=== PATIENT | female | born 1970 | race Caucasian/White ===

== ENCOUNTER 2018-01-16 10:16 | Inpatient (IN) ==
--- NOTE | 2018-01-15 22:16 | Discharge Summary ---
<Opal Burgos E - Last Filed: 01/15/18 22:13> Date of Encounter: 01/15/18 - Discharge Diagnosis (1) Status post total right knee replacement Priority: Primary Status: Acute (2) Arthritis of right knee Priority: Primary Status: Chronic (3) History of DVT (deep vein thrombosis) Priority: Secondary Status: Chronic (4) Obesity Priority: Secondary Status: Chronic Qualifiers: Obesity type: unspecified obesity type Obesity classification: unspecified obesity classification Serious obesity comorbidity presence: unspecified whether serious comorbidity present Qualified Code(s): E66.9 - Obesity, unspecified - Hospital Course Hospital course: Ms. Shelley is a 47 year old female - Time Spent with Patient Total time spent providing and/or coordinating discharge services: - Discharge Medications Prescriptions: Doxycycline Hyclate 100 mg PO BID 10 Days #20 tablet Home Medications: Aspirin Enteric Coated [Aspirin EC] 325 mg PO BID 10 Days #20 tablet. [Rx] Oxycodone HCl 5 mg PO Q6H PRN 7 Days #28 tablet 01/15/18 [Rx] Cyclobenzaprine [Flexeril] 20 mg PO HS 01/16/18 [History] Duloxetine HCl [Cymbalta] 120 mg PO DAILY 01/16/18 [History] Levocetirizine 5 mg PO DAILY 01/16/18 [History] Montelukast [Singulair] 10 mg PO HS 01/16/18 [History] Pregabalin [Lyrica] 225 mg PO HS 01/16/18 [History] Rizatriptan Benzoate [Maxalt] 5 mg PO Q2H PRN 01/16/18 [History] Topiramate 150 mg PO BID 01/16/18 [History] Triamcinolone Acetonide [Nasacort] 1 spr NS DAILY 01/16/18 [History] Doxycycline Hyclate 100 mg PO BID 10 Days #20 tablet 01/17/18 [Rx] Allergies/Adverse Reactions: 3 Allergy/AdvReac Type Severity Reaction Status Date / Time clindamycin Allergy Hives Verified 01/16/18 10:59 codeine Allergy Itching Verified 01/16/18 10:59 Erythromycin Base Allergy Hives Verified 01/16/18 10:59 penicillin G Allergy See Verified 01/16/18 10:59 Comments tetanus toxoid, adsorbed Allergy See Verified 01/16/18 10:59 Comments vancomycin Allergy Rash Verified 01/16/18 10:59 cough syrup Allergy Itching Uncoded 01/16/18 10:59 tape Allergy Blister Uncoded 01/16/18 10:59 Primary care physician: PCP NONE - Patient Status Disposition: Home, Self-Care Condition: Good - Discharge Instructions Follow Up With: NONE,PCP [Non-Partnered Physician] - Nikki Maldonado [Family Provider] - <Wolfgang Willson - Last Filed: 01/18/18 06:56> Date of Encounter: 01/18/18 Time of Encounter: 06:55 - Discharge Diagnosis (1) Obesity (BMI 30.0-34.9) Priority: Secondary Status: Chronic (2) Status post total right knee replacement Priority: Primary Status: Acute (3) Arthritis of right knee Priority: Primary Status: Chronic (4) History of DVT (deep vein thrombosis) Priority: Secondary Status: Chronic (5) Acute blood loss anemia Priority: Primary Status: Acute (6) 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 Shelley is a 47 year old female Status post right total knee replacement The patient had an uneventful postoperative course. They received antibiotics and physical therapy and were discharged in stable condition. There will follow -up in the office in 2 weeks. - Time Spent with Patient Total time spent providing and/or coordinating discharge services: Primary care physician: PCP NONE - Patient Status Functional capacity at discharge: uses cane/walker Overall status at discharge: patient is progressing back to baseline
--- NOTE | 2018-01-16 11:01 | History & Physical Report ---
Date of Encounter: 01/16/18 Time of Encounter: 11:00 24 Hour HP Update - Instructions Instructions: If the History and Physical is less than 30 days old and was completed prior to A.M. admission and or procedure and has NOT been updated on calendar day of procedure please complete this update prior to performing procedure. - Update Patient reports changes in Medical Condition: No Changes in examination, assessment, or condition: No Changes in Medication: No Preop tests/diagnostics Reviewed: Yes Surgery Remains Indicated: Yes Consent for Planned Operative Procedure(s) Verified: Yes - Pre-Operative Checklist Preoperative Checklist Indicated: No Prophylactic Antibiotic Ordered: Yes Is VTE Prophylaxis Indicated?: Yes
[2018-01-16] MEDS ORDERED: Ringers Solution, Lactated 1,000 ML IVC SCH (11:30)
[2018-01-16] MEDS ORDERED: Lidocaine -MPF 2% 2 ML VIAL ONE (11:34)
[2018-01-16] MEDS ORDERED: Propofol 500 MG/50 ML INFUS..BTL ONE (11:34)
[2018-01-16] MEDS ORDERED: Ondansetron 4 MG/2 ML VIAL ONE (11:34)
[2018-01-16] MEDS ORDERED: *HR* FentaNYL (PF) 100 MCG/2 ML VIAL ONE (11:34)
[2018-01-16] MEDS ORDERED: *HR* Midazolam HCl 2 MG/2 ML VIAL ONE (11:34)
[2018-01-16] MEDS ORDERED: Acetaminophen IV 1,000 MG/100 ML INFUS..BTL IVPB ONE (11:36)
--- NOTE | 2018-01-16 11:36 | Anesthesia Evaluation PreOp ---
Date of Encounter: 01/16/18 Time of Encounter: 11:35 - Past History Planned Operation: Right robotic TKR Cardiac History: Denies any Significant Hx Pulmonary History: Denies Any Significant HX CABLE ARMORER History: Other (R foot reflex sympathetic dystrophy, chronic low baCK Pmigraine) Other Medical History: Other (hx of DVT) Anesthesia History: Past Anesthesia (hysterectomy, D&C, tonsills, breast reduction, R knee scope, wideom teeth, SCS and removal), Problems (PONV) Alcohol Use: none Drug use: none Medications and Allergies Aspirin Enteric Coated [Aspirin EC] 325 mg PO BID 10 Days #20 tablet. [Rx] Oxycodone HCl 5 mg PO Q6H PRN 7 Days #28 tablet 01/15/18 [Rx] 3 Allergy/AdvReac Type Severity Reaction Status Date / Time clindamycin Allergy Hives Verified 01/16/18 10:59 codeine Allergy Itching Verified 01/16/18 10:59 Erythromycin Base Allergy Hives Verified 01/16/18 10:59 penicillin G Allergy See Verified 01/16/18 10:59 Comments tetanus toxoid, adsorbed Allergy See Verified 01/16/18 10:59 Comments vancomycin Allergy Rash Verified 01/16/18 10:59 cough syrup Allergy Itching Uncoded 01/16/18 10:59 tape Allergy Blister Uncoded 01/16/18 10:59 - Meds/Allergy Pre-op Review Medications Reviewed: Yes Allergies Reviewed: Yes Beta Blockers on Current Med List: No Anesthesia Results - Labs Laboratory Tests 01/10/18 01/10/18 01/10/18 10:32 11:00 11:00 WBC 5.3 Hgb 15.0 Hct 44.4 Plt Count 337 PT 10.2 INR 1.0 APTT 28.6 Sodium 136 Potassium 4.7 Chloride 104 Carbon Dioxide 26 BUN 9 Creatinine 0.78 Anesthesia Exam O2 Sat Height 1.57 m Height 1.57 m Height 1.57 m Weight 83.915 kg Weight 83.915 kg Weight 83.915 kg O2 Sat by Pulse Oximetry 100 Vital Signs Temp Pulse Resp BP Pulse Ox 98.5 F 72 18 132/95 100 01/16/18 10:34 01/16/18 10:34 01/16/18 10:34 01/16/18 10:34 01/16/18 10:34 - HEENT Pupil (Motor): Pupils equal, EOMI Mallampati: II Teeth: Normal Oral Opening: Greater than 3 - CABLE ARMORER LOC: Oriented CABLE ARMORER Motor: Normal RUE, Normal LUE, Normal RLE, Normal LLE, Normal Face CABLE ARMORER Sensory: Normal: RUE, LUE, RLE, LLE, Face - Cardiac Rhythm: Regular Anesthesia Assess/Plan ASA Score: 2 Modified Rachana Scale for Level of Consciousness: Cooperative, oriented, and tranquil Anesthetic Plan: General, Regional (R femoral and Ipak) Monitoring Plan: Standard Monitors Recovery Plan: PACU
[2018-01-16] MEDS ORDERED: Scopolamine Patch 1.5 MG PATCH.TD72 TD ONE (11:50)
[2018-01-16] MEDS ORDERED: CeFAZolin Syringe 2,000MG/20 ML SYR IVPB ONE (11:59)
[2018-01-16] MEDS ORDERED: ROPIVACAINE HCL/PF 0.5% 30 ML VIAL ONE (12:15)
[2018-01-16] MEDS ORDERED: CeFAZolin Syr 2,000MG/20 ML 2,000 MG/20 ML SYRINGE IVPB ONE (12:15)
[2018-01-16] MEDS ORDERED: Bupivacaine/Clonidine Syringe 1 EACH SYRINGE ONE (12:16)
--- NOTE | 2018-01-16 13:02 | Anesthesia Procedures ---
Date of Encounter: 01/16/18 Time of Encounter: 13:00 Procedures: Anesthesia - Nerve Block Procedure Date: 01/16/18 Time: 13:00 Allergies/Adv Reactions: clindamycin Allergy (Verified 01/16/18 10:59) Hives codeine Allergy (Verified 01/16/18 10:59) Itching Erythromycin Base Allergy (Verified 01/16/18 10:59) Hives penicillin G Allergy (Verified 01/16/18 10:59) See Comments tetanus toxoid, adsorbed Allergy (Verified 01/16/18 10:59) See Comments vancomycin Allergy (Verified 01/16/18 10:59) Rash cough syrup Allergy (Uncoded 01/16/18 10:59) Itching tape Allergy (Uncoded 01/16/18 10:59) Blister Pre-op Diagnosis: oa right knee Surgical Procedure: right tka Checklist: Correct Patient Identifier, Correct procedure, History checked Correct side: Right Blood Thinner: No Monitor Applied: EKG, BP, Pulse Oximetry Supplemental Oxygen via Nasal Cannula (L/min): 2 Sedation: Versed (mg): 2 Sedation: Fentanyl (mcg): 100 Indication: Post Op Analgesia Pre-op Neuro Deficits: No Block Type: Femoral, Other (iPACK) Catheter placed: No Sterile Technique: Yes Ultrasound used: Yes Anatomy identified: Yes Visual spread of Local: Yes Neuro Stimulation: No Blood on Needle Aspiration: No Smooth Injection of Local: Yes Pain with Injection of Local: No Prep: Chlorhexadine Needle: 22 x 50 mm Stimuplex (femoral), 21 x 100 mm Stimuplex (ipack) Local: 0.25% Bupivicaine w/Clonidine 20 mcg/cc (20cc for iPACK), Ropivacaine ( 0.5% 30cc for femoral) Volume (cc): 50 Number of Attempts: 1 Complications: None/effective block
[2018-01-16] MEDS ORDERED: *HR* HYDROmorphone (PF) 1 MG/ML SYRINGE IVP PRN (13:46)
[2018-01-16] MEDS ORDERED: *HR* OxyCODONE Immed Rel 5 MG TABLET PO PRN (13:46)
[2018-01-16] MEDS ORDERED: *HR* Promethazine 25 MG/ML VIAL IVP PRN (13:46)
--- NOTE | 2018-01-16 14:15 | Orthopedic Operative Note ---
Date of procedure: 01/16/18 Pre-op diagnosis: Right knee arthritis Post-op diagnosis: same Procedure: Procedure: Right robotic-assisted Total knee replacement Estimated blood loss: 400 cc Hardware: Metal and polyethylene replacement. [place] Femur: 3 Tibia: 3 TS insert: 13 Patella: 36 Exam Under anesthesia: 6 degree hyperextension 3 degree varus as calculated by the robot full flexion and no instability Procedural Notes: Grade 3 arthritic changes all 3 compartments. Operative procedure: The patient was brought to the operating room and placed on the operating room table. After general anesthesia was administered the operative knee was examined. Findings were noted in the exam under anesthesia. The operative extremity was prepped and draped in sterile surgical fashion. The patient received IV antibiotics prior to skin incision. A standard midline incision was made centered over the patella. The incision was made through the skin and subcutaneous tissue. A medial parapatellar tendon approach was performed. Care was taken to preserve tissue along the medial aspect of the patella. And to protect the patella tendon. The deep MCL was released off the medial tibia. The infra patella fat pad was excised. The patella was everted and cut was made at the level of the insertion of the quadriceps and patella tendon. The patella was sized the guide was seated and the lug holes are drilled. Knee was brought into flexion. Patient noted to have grade 3 arthritic changes all 3 compartments. Steinmann pins were placed in the tibia and the femur for the tibial and femoral arrays respectively. Checkpoints were also placed in the tibia and the femur for calculation purposes. The knee including the femur and the tibial registered. Osteophytes, ACL and PCL were excised at this point. Extension and flexion were assessed with a valgus stress components were adjusted on the computer to balance the knee. Femoral cuts were made first with robotic assistance, these included the anterior cut posterior cuts chamfer cuts. Tibial cut was then performed with robotic assistance as well. Bone fragments were removed, as well as the medial and lateral meniscus. The size 3 femoral guide was seated box cut was made lug holes are drilled. The size 3 tibial tray was seated and prepared with the fin cutter. Trial reduction with the 13 TS Erin revealed extension of 0 degree and 2 degree varus full flexion. No varus valgus instability. Trial reduction revealed excellent patella tracking. All trial components were removed all bony surfaces were irrigated. The Tibia was seated followed by the femur, The Erin size 13 was seated and secured patella. Patient had similar findings for motion and stability. The knee was closed by the PA. The knee was then irrigated out with 2 L of pulse irrigation. The extensor mechanism was closed with #2 FiberWire suture and #2 PDS suture. The subcutaneous tissue was then irrigated and closed deep with #1 PDS suture superficially with 0 PDS suture and skin was closed with zip tie The patient was then placed in a sterile dressing and a postoperative brace extubated and transferred to recovery room in stable condition. Anesthesia: GETA Surgeon: Wolfgang Willson Was there an pastoral assistant present: Yes Maternity Nurse: Jade Law Estimated blood loss (cc): 400 Condition: stable Disposition: PACU
[2018-01-16 15:30] LABS: Hematocrit 33.9 % (35.3-44.9)
[2018-01-16 15:31] LABS: Hemoglobin 11.3 g/dL (11.5-15.4)
--- NOTE | 2018-01-16 15:32 | Anesthesia Evaluation Post Op ---
Date of Encounter: 01/16/18 Time of Encounter: 15:30 - Vital Signs Vital Signs: Vital Signs/O2 Sat/Glucose, Most Current Temp Pulse Resp BP Pulse Ox 01/16/18 15:27 97.5 F L 73 12 100/65 96 01/16/18 15:17 97.5 F L 70 12 96/66 97 01/16/18 15:07 69 12 91/64 94 01/16/18 14:57 69 12 79/48 94 01/16/18 14:47 97.9 F 72 14 90/63 98 01/16/18 13:00 74 16 128/94 99 01/16/18 12:38 71 18 134/106 98 - Lungs Lungs: Clear Ascult./Percussion - Airway Airway: Non-obstructed - Cardiovascular Regular Rate - Mental Status Mental Status: Alert & Oriented, Answers Appropriately - Pain Pain Scale: 2 - Nausea Vomiting Nausea Vomiting: Not Present - Hydration Hydration: Ice chips - Discharge PostOp Status: Transfer Patient to floor
[2018-01-16] MEDS ORDERED: Naloxone 0.4 MG/ML INJ IVP PRN (15:48)
[2018-01-16] MEDS ORDERED: Sennosides 8.6 MG TABLET PO PRN (15:48)
[2018-01-16] MEDS ORDERED: Temazepam 15 MG CAPSULE PO PRN (15:48)
[2018-01-16] MEDS ORDERED: Ondansetron 4 MG/2 ML VIAL IVP PRN (15:48)
[2018-01-16] MEDS ORDERED: MOM Conc 10 ML UD.LIQ PO PRN (15:48)
[2018-01-16] MEDS ORDERED: (Rizatriptan Benzoate [Maxalt] 5 MG) PO PRN (15:48)
[2018-01-16] MEDS ORDERED: CeFAZolin Pre 2,000 MG/100 ML 2,000 MG/100 ML BAG IVPB SCH (16:00)
[2018-01-16] MEDS: Ringers Solution, Lactated 1,000 ML IVC SCH (17:55)
[2018-01-16] MEDS: *HR* Enoxaparin 30 MG/0.3 ML SYRINGE SQ SCH (17:56)
[2018-01-16] MEDS ORDERED: *HR* Enoxaparin 30 MG/0.3 ML SYRINGE SQ SCH (18:00)
[2018-01-16] MEDS: Acetaminophen IV 1,000 MG/100 ML INFUS..BTL IVPB PRN (20:19)
[2018-01-16] MEDS: Pregabalin 75 MG CAPSULE PO SCH (21:44)
[2018-01-16] MEDS: Topiramate 100 MG TABLET PO SCH (21:45)
[2018-01-16] MEDS: CeFAZolin Pre 2,000 MG/100 ML 2,000 MG/100 ML BAG IVPB SCH (21:55)
[2018-01-17] MEDS: traMADol 50 MG TABLET PO PRN ×2 (00:49→09:49)
[2018-01-17] MEDS: CeFAZolin Pre 2,000 MG/100 ML 2,000 MG/100 ML BAG IVPB SCH (00:50)
[2018-01-17 02:14] LABS: Hematocrit 29.5 % (35.3-44.9); Hemoglobin 9.9 g/dL (11.5-15.4)
[2018-01-17 02:32] LABS: BUN/Creatinine Ratio 12 (6-26); Blood Urea Nitrogen 9 mg/dL (6-20); Calcium 8.5 mg/dL (8.6-10.3); Carbon Dioxide 22 mEq/L (23-29); Chloride 111 mEq/L (98-107); Glucose 116 mg/dL (70-105); Osmolality,Calculated 288 (280-300); Potassium 3.9 mEq/L (3.5-5.1); Sodium 139 mEq/L (136-145); eGFR For African Americans > 60 (> 60); eGFR For Non-African Americans > 60 (> 60)
[2018-01-17] MEDS: Acetaminophen IV 1,000 MG/100 ML INFUS..BTL IVPB PRN (04:34)
[2018-01-17] MEDS: Ringers Solution, Lactated 1,000 ML IVC SCH (05:22)
[2018-01-17] MEDS: *HR* Enoxaparin 30 MG/0.3 ML SYRINGE SQ SCH ×2 (05:22→18:12)
--- NOTE | 2018-01-17 06:52 | Orthopedics Progress Note ---
Date of Encounter: 01/17/18 Time of Encounter: 06:51 - Assessment and Plan (1) Obesity (BMI 30.0-34.9) Current Visit: Yes Status: Chronic (2) Status post total right knee replacement Current Visit: No Status: Acute (3) Arthritis of right knee Current Visit: No Status: Chronic (4) History of DVT (deep vein thrombosis) Current Visit: No Status: Chronic Subjective Interval history: Patient was seen this morning doing well without complaints. Afebrile vital signs stable. Operative extremity: Nerve block still working Dressing clean dry and intact Calves nontender Assessment and plan: Continue with postoperative care hemoglobin 9.9 Objective Vital signs: Vital Signs Temp Pulse Resp BP Pulse Ox 01/17/18 02:54 98.2 F 80 14 92/62 96 01/16/18 23:01 98.5 F 81 18 96/62 96 01/16/18 19:15 98.7 F 98 18 102/71 98 01/16/18 17:58 98.0 F 95 17 94/66 100 01/16/18 16:58 98.0 F 76 16 100/62 95 01/16/18 16:27 97.9 F 83 15 100/68 96 01/16/18 15:50 97.5 F L 77 15 101/70 98 01/16/18 15:37 97.5 F L 76 12 95/71 97 01/16/18 15:27 97.5 F L 73 12 100/65 96 01/16/18 15:17 97.5 F L 70 12 96/66 97 01/16/18 15:07 69 12 91/64 94 01/16/18 14:57 69 12 79/48 94 01/16/18 14:47 97.9 F 72 14 90/63 98 01/16/18 13:00 74 16 128/94 99 01/16/18 12:38 71 18 134/106 98 01/16/18 10:34 98.5 F 72 18 132/95 100 Intake and Output 01/16/18 01/16/18 01/17/18 15:59 23:59 07:59 Intake Total 120 / 120 500 / 500 1300 / 1300 Output Total 400 / 400 0 / 0 Balance -280 / -280 500 / 500 1300 / 1300 Intake: IV Fluids 120 / 120 200 / 200 1000 / 1000 Lactated Ringers 1,000 ML @ 75 1000 / 1000 mls/hr IVC .[id number] RAISSA Rx#: [id number] Ofirmev 1,000 mg/100 ml 1,000 100 / 100 100 / 100 mg In 100 ml @ 400 mls/hr IVPB Q8HR PRN Rx#:[id number] Ancef Premix 2,000 MG/100 ML 2, 100 / 100 000 mg In 100 ml @ 200 mls/hr IVPB Q8HR RAISSA Rx#:[id number] Ancef Syringe 2,000 MG/20 ML 2, 20 / 20 000 mg In 20 ml @ 200 mls/hr IVPB PREOP ONE Rx#:[id number] Oral 300 / 300 300 / 300 Output: Urine 0 / 0 Estimated Blood Loss 400 / 400 Other: # Voids 1 1 Weight 83.915 kg - Labs CBC & BMP: 01/17/18 01:53 01/17/18 01:53 Labs: Abnormal lab results Hgb 9.9 g/dL (11.5-15.4) L 01/17/18 01:53 Hct 29.5 % (35.3-44.9) L 01/17/18 01:53 Chloride 111 mEq/L (98-107) H 01/17/18 01:53 Carbon Dioxide 22 mEq/L (23-29) L 01/17/18 01:53 Glucose 116 mg/dL (70-105) H 01/17/18 01:53 Calcium 8.5 mg/dL (8.6-10.3) L 01/17/18 01:53 - VTE Documentation of Mechanical Device: Venous foot pump, device Consult Discharge Plan - Plan Referrals: NONE,PCP [Non-Partnered Physician] - Nikki Maldonado [Family Provider] -
--- NOTE | 2018-01-17 08:35 | Event Note ---
Date of Encounter: 01/17/18 Time of Encounter: 08:50 PCR- POD#1 right total knee robotic 01/16/18 Dr. Willson PCR - Patient seen at bedside. Labwork and medications reviewed. Pain control: Adequate Participating in PT. All questions and concerns addressed. Educated on use of incentive spirometer, ambulation, and hydration. Patient educated on post-operative restrictions and care. Addressed: Patient to be discharged on antibiotic. D/C plan: Home with outpatient therapy when appropriate
[2018-01-17] MEDS: Topiramate 100 MG TABLET PO SCH ×2 (09:47→20:41)
[2018-01-17] MEDS: Fluticasone Propionate Nasal 50 MCG/SPRAY BOTTLE NS SCH (09:50)
[2018-01-17] MEDS: *HR* OxyCODONE/APAP 5/325 TABLET PO PRN ×2 (11:26→20:48)
[2018-01-17] MEDS: Pregabalin 75 MG CAPSULE PO SCH (20:40)
[2018-01-18] MEDS: *HR* OxyCODONE Immed Rel 5 MG TABLET PO PRN ×3 (01:39→09:59)
[2018-01-18 02:09] LABS: Hemoglobin 8.5 g/dL (11.5-15.4)
[2018-01-18 02:32] LABS: BUN/Creatinine Ratio 12 (6-26); Blood Urea Nitrogen 10 mg/dL (6-20); Calcium 8.2 mg/dL (8.6-10.3); Carbon Dioxide 22 mEq/L (23-29); Chloride 112 mEq/L (98-107); Glucose 155 mg/dL (70-105); Osmolality,Calculated 296 (280-300); Potassium 3.3 mEq/L (3.5-5.1); Sodium 142 mEq/L (136-145); eGFR For African Americans > 60 (> 60); eGFR For Non-African Americans > 60 (> 60)
[2018-01-18] MEDS: *HR* Enoxaparin 30 MG/0.3 ML SYRINGE SQ SCH (06:50)
--- NOTE | 2018-01-18 06:57 | Orthopedics Progress Note ---
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 Afebrile vital signs stable. Operative extremity: Nerve block still working Dressing clean dry and intact Calves nontender Assessment and plan: Continue with postoperative care hemoglobin 8.5 asymptomatic discharged today Objective Vital signs: Vital Signs Temp Pulse Resp BP Pulse Ox 01/17/18 22:30 98.4 F 98 18 115/78 98 01/17/18 19:18 98.9 F 95 18 109/74 96 01/17/18 16:03 98.6 F 96 16 107/75 99 01/17/18 11:28 98.5 F 85 16 104/79 99 01/17/18 07:23 98.8 F 68 14 108/76 99 Intake and Output 01/17/18 01/17/18 01/18/18 15:59 23:59 07:59 Intake Total 240 / 240 50 / 50 400 / 400 Output Total 0 / 0 Balance 240 / 240 50 / 50 400 / 400 Intake: Oral 240 / 240 50 / 50 400 / 400 Output: Urine 0 / 0 Other: Meal Lunch Percent of Meal Consumed 100% # Voids 1 1 - Labs CBC & BMP: 01/18/18 01:29 01/18/18 01:29 Labs: Abnormal lab results Hgb 8.5 g/dL (11.5-15.4) L 01/18/18 01:29 Hct 25.0 % (35.3-44.9) L 01/18/18 01:29 Potassium 3.3 mEq/L (3.5-5.1) L 01/18/18 01:29 Chloride 112 mEq/L (98-107) H 01/18/18 01:29 Carbon Dioxide 22 mEq/L (23-29) L 01/18/18 01:29 Glucose 155 mg/dL (70-105) H 01/18/18 01:29 Calcium 8.2 mg/dL (8.6-10.3) L 01/18/18 01:29 - VTE Documentation of Mechanical Device: Venous foot pump, device Consult Discharge Plan - Plan Referrals: NONE,PCP [Non-Partnered Physician] - Nikki Maldonado [Family Provider] - Prescriptions: Doxycycline Hyclate 100 mg PO BID 10 Days #20 tablet
[2018-01-18 07:09] VITALS: BP 118/79
[2018-01-18] MEDS: Topiramate 100 MG TABLET PO SCH (09:46)
[2018-01-18] MEDS: Fluticasone Propionate Nasal 50 MCG/SPRAY BOTTLE NS SCH (09:48)
[2018-01-18] MEDS: *HR* OxyCODONE/APAP 5/325 TABLET PO PRN (12:33)
--- NOTE | 2018-01-18 12:34 | Physician Discharge Referral ---
Home Health/Hosp Referral Info Transfer to: Home Health Attending Provider: Dr. Wolfgang Willson Provider in Charge Post Discharge: PCP - Diagnosis (1) Status post total right knee replacement Priority: Primary Status: Acute (2) Arthritis of right knee Priority: Primary Status: Chronic (3) History of DVT (deep vein thrombosis) Priority: Secondary Status: Chronic (4) Obesity Priority: Secondary Status: Chronic - Respiratory Orders Smoking Cessation: Smoking cessation has been advised. For more information, call the [place] Tobacco Quit Line at 4-746-VGUP-NOW. - Dressing/Wound Care Site: Right knee Type of Dressing/Treatments w/Frequency: Opsite placed. Keep dressing intact until first follow up appointment. If greater than 50% saturated, notify office, remove dressing and place appropriate dressing back in place. Leave Zipline intact. Opsite dressing is water resistant, not water-proof. OK to shower, but do not get dressing wet. - Diet/Nutrition Diet/Nutrition Orders: Regular - Activity Activity Orders: Up ad viviana, Ambulate, Chair, Walker Activity: List: Total Knee replacement Precautions x 6 weeks Apply cold therapy wrap 3-6x/day for 20 minutes at a time. Encourage ambulation throughout the day and incentive spirometer 10x/hour. Elevate affected extremity above heart as tolerated. Brace: Wear knee immobilizer at night x 2 weeks. - Services Needed Following services are medically necessary services: Nursing, Home Health Aide, Physical Therapy, Occupational Therapy - Transfer Medications Prescriptions: Doxycycline Hyclate 100 mg PO BID 10 Days #20 tablet Home Medications: Aspirin Enteric Coated [Aspirin EC] 325 mg PO BID 10 Days #20 tablet. [Rx] Oxycodone HCl 5 mg PO Q6H PRN 7 Days #28 tablet 01/15/18 [Rx] Cyclobenzaprine [Flexeril] 20 mg PO HS 01/16/18 [History] Duloxetine HCl [Cymbalta] 120 mg PO DAILY 01/16/18 [History] Levocetirizine 5 mg PO DAILY 01/16/18 [History] Montelukast [Singulair] 10 mg PO HS 01/16/18 [History] Pregabalin [Lyrica] 225 mg PO HS 01/16/18 [History] Rizatriptan Benzoate [Maxalt] 5 mg PO Q2H PRN 01/16/18 [History] Topiramate 150 mg PO BID 01/16/18 [History] Triamcinolone Acetonide [Nasacort] 1 spr NS DAILY 01/16/18 [History] Doxycycline Hyclate 100 mg PO BID 10 Days #20 tablet 01/17/18 [Rx] Allergies/Adverse Reactions: 3 Allergy/AdvReac Type Severity Reaction Status Date / Time clindamycin Allergy Hives Verified 01/16/18 10:59 codeine Allergy Itching Verified 01/16/18 10:59 Erythromycin Base Allergy Hives Verified 01/16/18 10:59 penicillin G Allergy See Verified 01/16/18 10:59 Comments tetanus toxoid, adsorbed Allergy See Verified 01/16/18 10:59 Comments vancomycin Allergy Rash Verified 01/16/18 10:59 cough syrup Allergy Itching Uncoded 01/16/18 10:59 tape Allergy Blister Uncoded 01/16/18 10:59 Certification: Further, I certify that my clinical findings support that this patient is homebound (i.e. absences from home require considerable and taxing effort and are for medical reasons or rastafari services or infrequently or short duration when for other reasons) because: Homebound Reason: Post-surgery restriction and or conditions limit ability to leave home Attestation: My signature below is to certify that this patient is under my care and that I, or nurse practitioner, or a physician temporary office assistant working with me, has a face-to- face encounter with this patient.
--- NOTE | 2018-01-18 18:56 | Event Note ---
Date of Encounter: 01/18/18 Time of Encounter: 09:10 PCR- POD#2 right total knee robotic 01/16/18 Dr. Willson PCR - Patient seen at bedside. Labwork and medications reviewed. Pain control: Adequate Participating in PT. All questions and concerns addressed. Educated on use of incentive spirometer, ambulation, and hydration. Patient educated on post-operative restrictions and care. Addressed: Patient to be discharged on antibiotic. Patient complaining of significant calf pain today. With her history of bilateral upper extremity DVTs Will obtain Doppler of the right lower extremity prior to patient's discharge. D/C plan: Home with home health today pending Doppler
== END 2018-01-18 14:10 | disposition home or self-care (01) | DRG 470 ==
LOC: SAMDAY 10:16 → 3NENU 15:44
PROVIDERS: ADMIT Orthopaedic Surgery; ATTEND Orthopaedic Surgery

== ENCOUNTER 2019-03-26 01:59 | Inpatient (IN) ==
[2019-03-26 06:55] LABS: Basophils # 0.1 K/mcL (0.0-0.2); Basophils % 0.7 %; Eosinophils # 0.1 K/mcL (0.0-0.6); Eosinophils % 1.5 %; Hematocrit 39.4 % (35.3-44.9); Hemoglobin 13.1 g/dL (11.5-15.4); Immature Granulocytes % 0.4 % (0-4); Lymphocytes % 24.8 %; Mean Corpuscular HGB Conc 33.2 g/dL (31.6-35.5); Mean Corpuscular Volume 96.3 fL (83.0-100.0); Monocytes # 0.6 K/mcL (0.0-1.3); Monocytes % 7.1 %; Neutrophils # 5.3 K/mcL (1.6-8.9); Platelet Count 294 K/mcL (140-400); Red Blood Count 4.09 M/mcL (3.82-4.97); Segmented Neutrophils % 65.5 %; White Blood Count 8.1 K/mcL (4.3-11.1)
[2019-03-26 07:16] LABS: Alanine Aminotransferase 19 Units/L (7-52); Albumin 4.3 g/dL (3.5-5.7); Alkaline Phosphatase 103 Units/L (34-104); Aspartate Amino Transferase 16 Units/L (13-39); BUN/Creatinine Ratio 20 (6-26); Bilirubin,Total 0.4 mg/dL (0.3-1.0); Blood Urea Nitrogen 15 mg/dL (6-20); Calcium 8.5 mg/dL (8.6-10.3); Carbon Dioxide 21 mEq/L (23-29); Chloride 106 mEq/L (98-107); Globulin 2.1 g/dL (2.4-3.5); Glucose 118 mg/dL (70-105); Osmolality,Calculated 290 (280-300); Potassium 3.9 mEq/L (3.5-5.1); Sodium 139 mEq/L (136-145); Total Protein 6.4 g/dL (6.4-8.9); eGFR For African Americans > 60 (> 60); eGFR For Non-African Americans > 60 (> 60)
[2019-03-26] MEDS ORDERED: Ketorolac 30 MG/ML VIAL IVP PRN (07:38)
--- NOTE | 2019-03-26 07:52 | Internal Med History&Physical ---
Date of Encounter: 03/26/19 Time of Encounter: 07:46 Internal Medicine - H&P: HPI History of present illness: Ms. Shelley is a 48 year old female with history of migraines and complex regional pain syndrome presents as a transfer from [facility] ED for a right lower limb fracture. Patient was hanging curtains when she fell, she was drinking prior to this. She does not have any alcohol abuse history that she reports. Family history reviewed, non-contributory. In [facility] ED an X -ray of right knee showed comminuted and moderately displaced distal right femoral metadiaphyseal fracture. She was given 4 mg of morphine followed by two doses of Dilaudid 1 mg, which did help alleviate pain. Serum alcohol level was Pain is currently rated 8/10 in severity, located just above right knee radiating to her thigh and knee. Currently patient is in moderate pain with right foot with some tingling and mild numbness. She denies fevers/chills, n/v, chest pain, shortness of breath. Past Med Surg Social Fam HX - Past Medical History Medical history: DVT, migraine, other Additional medical history: MRSA. RSD. seasonal allergies Psychiatric history: depression - Past Surgical History Surgical History: hysterectomy, knee replacement, other Additional surgical history: tonsils. breast reduction. spinal cord stimulator placed and removed. wisdom teeth. D&C. left ankle scope. right total knee. Right knee x3. epicondylitis. lateral release. spinal cord stim. spinal cord stim removed. broken nose repair - Social History Smoking Status: Never smoker Smokeless Tobacco Status: No Alcohol use: none Drug use: none Internal Medicine - H&P: Meds Duloxetine HCl [Cymbalta] 90 mg PO DAILY 01/16/18 [History] Montelukast [Singulair] 10 mg PO HS 01/16/18 [History] Triamcinolone Acetonide [Nasacort] 2 spr NS DAILY 01/16/18 [History] Levocetirizine Dihydrochloride [Allergy Relief (Xyzal)] 5 mg PO DAILY 09/07/18 [History] Rizatriptan Benzoate [Maxalt] 10 mg PO DAILY PRN 09/07/18 [History] Cephalexin [Keflex] 500 mg PO Q6H #10 capsule 11/30/18 [Rx] Cyclobenzaprine [Flexeril] 20 mg PO HS 11/30/18 [History] Ibuprofen [Motrin] 800 mg PO Q8HR #30 tablet 11/30/18 [Rx] Topiramate [Topamax] 150 mg PO BID 11/30/18 [History] Allergy/AdvReac Type Severity Reaction Status Date / Time clindamycin Allergy Hives Verified 09/01/18 15:10 codeine Allergy Itching Verified 09/01/18 15:10 Erythromycin Base Allergy Hives Verified 09/01/18 15:10 penicillin G Allergy See Verified 09/01/18 15:10 Comments Sulfa (Sulfonamide Allergy Itching Verified 09/07/18 07:29 Antibiotics) tetanus toxoid, adsorbed Allergy See Verified 09/01/18 15:10 Comments vancomycin Allergy Rash Verified 09/01/18 15:10 cough syrup Allergy Itching Uncoded 01/16/18 10:59 tape Allergy Blister Uncoded 01/16/18 10:59 All Systems PM: A 10-system review of systems was performed and is negative for pertinent findings except as documented above in the HPI. - Constitutional Constitutional: no chills, no fever(s), no night sweats - EENT Eyes: no change in vision, no discharge, no pain, no photophobia Ears: no ear discharge, no ear pain, no tinnitus Nose, mouth and throat: no dysphagia, no nasal discharge, no neck pain, no sore throat - Cardiovascular Cardiovascular ROS IM: no chest pain, no diaphoresis, no dyspnea, no lightheadedness, no palpitations, no syncope - Respiratory Respiratory: no cough, no dyspnea, no wheezing, no excessive phlegm production - Gastrointestinal Gastrointestinal: no abdominal pain, no diarrhea, no hematemesis, no hematochezia, no melena, no nausea, no vomiting - Genitourinary Genitourinary: no change in urinary stream, no dysuria, no flank pain, no elif turia - Musculoskeletal Musculoskeletal ROS IM: joint swelling, limited range of motion, numbness, tingling Additional comments: Right lower extremity - Integumentary Integumentary IM: no rash, no unusual bruising - Neurological Neurological ROS: no confusion, no convulsions, no focal weakness, no numbness, no tingling, no tremor(s) - Hematologic/Lymphatic Hematologic/Lymphatic: no easy bruising - Constitutional Vitals: Temp Pulse Resp BP Pulse Ox 98.3 F 69 17 120/82 94 03/26/19 07:05 03/26/19 07:05 03/26/19 07:05 03/26/19 07:05 03/26/19 07:05 General appearance: Present: A&O X 3, answers questions appropriately Exam: Moderate distress. - Head Head exam: Present: atraumatic, normocephalic - Eye Eye exam: Present: PERRL, conjuntiva pink, sclera anicteric Pupils: Present: PERRL - Neck Neck exam general surgery: Present: supple, trachea midline. Absent: lymphadenopathy - Respiratory Respiratory exam: Present: CTAB. Absent: accessory muscle use, rales, rhonchi, wheezes - Cardiovascular Cardiovascular exam: Present: RRR, +S1, +S2. Absent: diastolic murmur, gallop, rubs, systolic murmur - GI/Abdominal GI/Abdominal exam: Present: normal bowel sounds, soft, no peritoneal signs. Absent: distended, tenderness - Extremities Exam Extremities exam: Present: warm, radial pulses palpable and symmetrical. Absent: calf tenderness, cyanotic, pedal edema Additional comments: Right knee has diffuse swelling mostly above right knee that is tender to mild palpation. DP pulses 2+ via doppler as exam was limited due to pain. Sensation is slightly less right foot compared to left foot. - Neurological Exam Neurological exam: Present: CN II-XII intact, oriented X3, no focal deficits. Absent: pronater drift, facial droop, speech deficit - Skin Skin exam: Present: dry, intact Internal Med - H&P Results - Labs CBC & Chem 7: 03/26/19 06:41 03/26/19 06:41 Labs: Short CBC 03/26/19 Range/Units 06:41 WBC 8.1 (4.3-11.1) K/mcL Hgb 13.1 (11.5-15.4) g/dL Hct 39.4 (35.3-44.9) % Plt Count 294 (140-400) K/mcL Neutrophils # 5.3 (1.6-8.9) K/mcL BMP 03/26/19 06:41 Sodium 139 Potassium 3.9 Chloride 106 Carbon Dioxide 21 L BUN 15 Creatinine 0.74 Glucose 118 H Calcium 8.5 L Liver Function 03/26/19 Range/Units 06:41 Total Bilirubin 0.4 (0.3-1.0) mg/dL AST 16 (13-39) Units/L ALT 19 (7-52) Units/L Alkaline Phosphatase 103 (34-104) Units/L Albumin 4.3 (3.5-5.7) g/dL - Assessment and Plan (1) Displaced fracture of right femur Current Visit: Yes Status: Acute Assessment and plan: As seen on X-ray at ED prior to transfer. - Orthopedic Surgery consulted, plan for surgery today. - NPO - Pain control oxycodone sublingual, Toradol. Patient reported to get very drowsy wit IV Fentanyl so will avoid. Dilaudid and morphine if needed. (2) Status post total right knee replacement Current Visit: No Status: Acute (3) Alcohol intoxication Current Visit: Yes Status: Acute Assessment and plan: Give 1 L IV fluid bolus. Currently does not look intoxicated, appears to be at mental baseline. Qualifiers: Complication of substance-induced condition: uncomplicated Qualified Code(s): F10.920 - Alcohol use, unspecified with intoxication, uncomplicated (4) DVT prophylaxis Current Visit: Yes Status: Acute Assessment and plan: Heparin SQ - Time Spent With Patient Total time spent is greater than 50% in coordination of care (as documented) at patient's floor/unit and/or counseling patient:
[2019-03-26] MEDS ORDERED: Ringers Solution, Lactated 1,000 ML IVC ONE (08:04)
[2019-03-26] MEDS ORDERED: Naloxone 0.4 MG/ML INJ IVP PRN ×2 (08:05→19:57)
[2019-03-26] MEDS: Ringers Solution, Lactated 1,000 ML IVC SCH ×2 (10:56→15:40)
--- NOTE | 2019-03-26 13:14 | Anesthesia Evaluation PreOp ---
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 History: Other (RSD right knee and right foot, migraine MCCULLOUGH's) Other Medical History: Other (depression, obesity BMI=40.1) Anesthesia History: No Prior Anesthetic Complications, Past Anesthesia (hysterectomy) Alcohol Use: none Drug use: none Medications and Allergies Duloxetine HCl [Cymbalta] 90 mg PO DAILY 01/16/18 [History] Montelukast [Singulair] 10 mg PO HS 01/16/18 [History] Triamcinolone Acetonide [Nasacort] 2 spr NS DAILY 01/16/18 [History] Levocetirizine Dihydrochloride [Allergy Relief (Xyzal)] 5 mg PO DAILY 09/07/18 [History] Rizatriptan Benzoate [Maxalt] 10 mg PO DAILY PRN 09/07/18 [History] Cephalexin [Keflex] 500 mg PO Q6H #10 capsule 11/30/18 [Rx] Cyclobenzaprine [Flexeril] 20 mg PO HS 11/30/18 [History] Ibuprofen [Motrin] 800 mg PO Q8HR #30 tablet 11/30/18 [Rx] Topiramate [Topamax] 150 mg PO BID 11/30/18 [History] Allergy/AdvReac Type Severity Reaction Status Date / Time clindamycin Allergy Hives Verified 09/01/18 15:10 codeine Allergy Itching Verified 09/01/18 15:10 Erythromycin Base Allergy Hives Verified 09/01/18 15:10 penicillin G Allergy See Verified 09/01/18 15:10 Comments Sulfa (Sulfonamide Allergy Itching Verified 09/07/18 07:29 Antibiotics) tetanus toxoid, adsorbed Allergy See Verified 09/01/18 15:10 Comments vancomycin Allergy Rash Verified 09/01/18 15:10 cough syrup Allergy Itching Uncoded 01/16/18 10:59 tape Allergy Blister Uncoded 01/16/18 10:59 - Meds/Allergy Pre-op Review Medications Reviewed: Yes Allergies Reviewed: Yes Beta Blockers on Current Med List: No Anesthesia Results - Labs 03/26/19 06:41 03/26/19 06:41 Anesthesia Exam Vital Signs/O2 Sat, Most Current Temp Pulse Resp BP Pulse Ox 98.6 F 92 16 144/87 96 03/26/19 12:26 03/26/19 12:26 03/26/19 12:03/26/19 12:03/26/19 12:26 Height: 5'2''/1.57m Weight: 219 lbs/99.5 kg NPO (# of Hours): 8 Pain Scale: 7 (right leg) Pain Scale Used: Numeric (1 - 10) - HEENT Pupil (Motor): EOMI Mallampati: III Teeth: Normal Oral Opening: Greater than 3 - GANG SAW OPERATOR LOC: Oriented GANG SAW OPERATOR Motor: Normal RUE, Normal LUE, Normal LLE, Normal Face, Deficit RLE GANG SAW OPERATOR Sensory: Normal: RUE, LUE, LLE, Face, Deficit: RLE - Cardiac Rhythm: Regular Murmur: None - Pulmonary Breath Sounds: bilateral Clear Respiratory Effort: Symmetrical Anesthesia Assess/Plan ASA Score: 3 Level of consciousness: Cooperative, Oriented, Tranquil Anesthetic Plan: General Monitoring Plan: Standard Monitors Recovery Plan: PACU
--- NOTE | 2019-03-26 14:33 | Electrocardiograph Report ---
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
[2019-03-26] MEDS ORDERED: *HR* Midazolam HCl 2 MG/2 ML VIAL ONE (15:25)
[2019-03-26] MEDS ORDERED: *HR* FentaNYL (PF) 100 MCG/2 ML VIAL ONE (15:25)
[2019-03-26] MEDS ORDERED: Lidocaine -MPF 2% 2 ML VIAL ONE (15:26)
[2019-03-26] MEDS ORDERED: Ondansetron 4 MG/2 ML VIAL IVP ONE (15:53)
[2019-03-26] MEDS ORDERED: *HR* HYDROmorphone (PF) 1 MG/ML SYRINGE IVP PRN (15:53)
[2019-03-26] MEDS ORDERED: *HR* Promethazine 25 MG/ML VIAL IVP PRN (15:53)
[2019-03-26] MEDS ORDERED: CeFAZolin Syr 2,000MG/20 ML 2,000 MG/20 ML SYRINGE IVPB ONE (16:30)
[2019-03-26] MEDS ORDERED: Dexamethasone 4 MG/ML VIAL ONE (17:00)
[2019-03-26] MEDS ORDERED: *HR* HYDROMORPHONE 2 MG/ML VIAL ONE (17:04)
[2019-03-26] MEDS ORDERED: Ondansetron 4 MG/2 ML VIAL ONE (17:06)
[2019-03-26] MEDS ORDERED: Ethanol\\Acetic Acid\\Na Ace\\Ben 1,000 ML IRRIG.SOLN IR ONE (17:19)
[2019-03-26] MEDS ORDERED: Acetaminophen IV 1,000 MG/100 ML INFUS..BTL ONE (18:04)
--- NOTE | 2019-03-26 18:08 | Orthopedics Progress Note ---
Date of Encounter: 03/26/19 Time of Encounter: 07:00 Subjective Interval history: Patient seen this morning, status post fall off a chair yesterday. Patient presented to local ER with displaced comminuted periprosthetic right femur fracture patient transferred over for definitive treatment. Patient evaluated resting comfortably, right lower shoulder was shortened and externally rotated. Neurovascular intact. X-rays show a displaced comminuted angulated fracture of the distal third right femur fracture proximal to the implant. Patient indicated for open reduction internal fixation. We reviewed the risks and benefits as well as recovery. All questions were answered. The patient agreed to this treatment plan and acknowledged an understanding of the treatment plan as described. Objective Vital signs: Vital Signs Temp Pulse Resp BP Pulse Ox 03/26/19 12:26 98.6 F 92 16 144/87 96 03/26/19 07:05 98.3 F 69 17 120/82 94 03/26/19 05:45 97.8 F 90 17 124/85 92 Intake and Output 03/26/19 03/26/19 03/26/19 07:59 15:59 23:59 Intake Total 1000 / 1000 Balance 1000 / 1000 Intake: IV Fluids 1000 / 1000 Lactated Ringers 1,000 ML @ 999 1000 / 1000 mls/hr IVC .Q1H1M ONE Rx#: [id number] Other: Weight 99.5 kg Blood Glucose* 107 Patient Weight 03/26/19 23:59 Weight 99.5 kg - Labs CBC & BMP: 03/26/19 06:41 03/26/19 06:41 Labs: Abnormal lab results Carbon Dioxide 21 mEq/L (23-29) L 03/26/19 06:41 Glucose 118 mg/dL (70-105) H 03/26/19 06:41 Calcium 8.5 mg/dL (8.6-10.3) L 03/26/19 06:41 Globulin 2.1 g/dL (2.4-3.5) L 03/26/19 06:41 Ethyl Alcohol 52 mg/dL (Less than 10) H 03/26/19 06:41 Consult Discharge Plan - Plan Referrals: Amira Langford CNP [Primary Care Provider] -
--- NOTE | 2019-03-26 18:12 | Orthopedic Operative Note ---
Date of procedure: 03/26/19 Pre-op diagnosis: Displaced comminuted angulated right distal third periprosthetic femur fx Post-op diagnosis: same Procedure: Right femur open reduction internal fixation Estimated blood loss: 300 cc Hardware: Anuja right periarticular 8 hole distal femur plate one 4.5 cortical screw 11, 5.0 locking screws. Procedural Notes: Patient with a comminuted displaced angulated distal periprosthetic femur fracture. Operative procedure: The patient was brought to the operating room and placed on the operating room fracture table. The well leg was placed in the well leg story, the fracture leg was placed in the fracture leg story. After general anesthesia was administered the operative leg was prepped and draped in the sterile surgical fashion The patient received IV antibiotics prior to skin incision. A standard lateral approach was made to the femur the incision is made to the skin and subcutaneous tissue. Hemostasis was obtained with Bovie cautery. Using careful blunt dissection the tensor fascia was identified and incised along the length of the incision. The vastus lateralis was elevated up after the fascia was split exposing the lateral femur and the fracture site. Fluoroscopy was used in both the AP and lateral planes to facilitate the reduction. The fractures reduced and held in place with bone holding forceps a Alicia periarticular 8 hole locking plate was approximated to the lateral surface was fixed with a compression screw proximally and 5.0 locking screws distally fixation was completed with 5.0 locking screws proximally. Position of hardware as well as fracture reduction was found to be acceptable with fluoroscopic assistance. The wound was irrigated the fracture site was packed with bone stimulating putty and chips, fascia was closed with a running #1 PDS suture tensa fascia was closed with a running #2 PDS suture subcutaneous tissues and closed deep #1 PDS suture superficially with 0 PDS suture and skin was closed with skin anabella. The patient was placed in a sterile dressing, and knee immobilizer The patient was extubated, and then transferred to the recovery room in stable condition. Anesthesia: GETA Surgeon: Wolfgang Willson Was there an assistant press operator offset present: No Estimated blood loss (cc): 300 Condition: stable Disposition: PACU
[2019-03-26] MEDS ORDERED: *HR* OxyCODONE Immed Rel 5 MG TABLET PO STA (19:06)
[2019-03-26 19:18] LABS: Hematocrit 34.8 % (35.3-44.9)
[2019-03-26 19:21] LABS: Hemoglobin 11.4 g/dL (11.5-15.4)
[2019-03-26] MEDS ORDERED: Ondansetron 4 MG/2 ML VIAL IVP PRN (19:57)
[2019-03-26] MEDS ORDERED: Sennosides 8.6 MG TABLET PO PRN (19:57)
[2019-03-26] MEDS ORDERED: *HR* OxyCODONE/APAP 5/325 TABLET PO PRN (19:57)
[2019-03-26] MEDS ORDERED: traMADol 50 MG TABLET PO PRN (19:57)
--- NOTE | 2019-03-26 20:40 | Anesthesia Evaluation Post Op ---
Date of Encounter: 03/26/19 Time of Encounter: 19:30 - Vital Signs Vital Signs: Vital Signs/O2 Sat, Most Current Temp Pulse Resp BP Pulse Ox 98.1 F 103 14 124/89 93 03/26/19 20:30 03/26/19 20:30 03/26/19 20:30 03/26/19 20:30 03/26/19 20:30 - Lungs Lungs: Clear Ascult./Percussion - Airway Airway: Non-obstructed - Cardiovascular Regular Rate - Mental Status Mental Status: Alert & Oriented, Answers Appropriately - Pain Pain Scale: 8 Pain Scale used: Numeric (1 - 10) (tolerable) - Nausea Vomiting Nausea Vomiting: Not Present - Hydration Hydration: Ice chips, Rocha catheter - Discharge PostOp Status: Transfer Patient to floor
[2019-03-26] MEDS ORDERED: *HR* Heparin 5,000 UNIT/ML VIAL SQ SCH (22:00)
[2019-03-26] MEDS: Topiramate 100 MG TABLET PO SCH (23:06)
[2019-03-26] MEDS: *HR* OxyCODONE Immed Rel 5 MG TABLET PO PRN (23:14)
[2019-03-26] MEDS: *HR* Heparin 5,000 UNIT/ML VIAL SQ SCH (23:21)
[2019-03-27] MEDS: *HR* OxyCODONE Immed Rel 5 MG TABLET PO PRN ×3 (03:04→21:17)
[2019-03-27] MEDS: *HR* Heparin 5,000 UNIT/ML VIAL SQ SCH ×3 (04:42→21:11)
--- NOTE | 2019-03-27 06:26 | Orthopedics Progress Note ---
Date of Encounter: 03/27/19 Time of Encounter: 06:26 Subjective Interval history: Patient was seen this morning doing well without complaints. Afebrile vital signs stable. Operative extremity: Neurovascularly intact Dressing clean dry and intact Calves nontender Assessment and plan: Continue with postoperative care Labs pending Objective Vital signs: Vital Signs Temp Pulse Resp BP Pulse Ox 03/27/19 04:36 132/86 03/27/19 03:47 98.7 F 99 16 145/103 99 03/27/19 03:03 128/88 03/26/19 22:54 98.8 F 106 17 154/96 96 03/26/19 22:45 98.8 F 106 17 154/96 96 03/26/19 20:54 99.2 F 106 14 135/93 94 03/26/19 20:30 98.1 F 103 14 124/89 93 03/26/19 19:45 98.0 F 100 14 131/88 94 03/26/19 19:22 99.3 F 99 18 131/95 95 03/26/19 19:12 98.8 F 98 18 140/97 98 03/26/19 19:02 95 16 140/91 96 03/26/19 18:52 88 18 135/91 97 03/26/19 18:42 98.7 F 93 16 136/88 97 03/26/19 12:26 98.6 F 92 16 144/87 96 03/26/19 07:05 98.3 F 69 17 120/82 94 Intake and Output 03/26/19 03/26/19 03/27/19 15:59 23:59 07:59 Intake Total 1000 / 1020 20 / 1020 100 / 100 Output Total 1650 / 1650 4000 / 4000 Balance 1000 / -630 -1630 / -630 -3900 / -3900 Intake: IV Fluids 1000 / 1020 20 / 1020 100 / 100 Lactated Ringers 1,000 ML @ 999 1000 / 1000 mls/hr IVC .Q1H1M ONE Rx#: [id number] Ancef Syringe 2,000 MG/20 ML 2, 20 / 20 000 mg In 20 ml @ 200 mls/hr IVPB PREOP ONE Rx#:[id number] Ancef 2,000 MG In 0.9 % Sodium 100 / 100 Chloride 100 ML @ 200 mls/hr IVPB Q8HR RAISSA Rx#:[id number] Output: Urine 1999 Estimated Blood Loss 400 / 400 Urine Amount (Catheter) 1250 / 1250 Catheter 1999 Urethral (Rocha) 1999 Other: Weight 99.6 kg Blood Glucose* 107 Patient Weight 03/27/19 23:59 Weight 99.6 kg - Labs CBC & BMP: 03/26/19 19:01 03/26/19 06:41 Labs: Abnormal lab results Hgb 11.4 g/dL (11.5-15.4) L D 03/26/19 19:01 Hct 34.8 % (35.3-44.9) L 03/26/19 19:01 Carbon Dioxide 21 mEq/L (23-29) L 03/26/19 06:41 Glucose 118 mg/dL (70-105) H 03/26/19 06:41 Calcium 8.5 mg/dL (8.6-10.3) L 03/26/19 06:41 Globulin 2.1 g/dL (2.4-3.5) L 03/26/19 06:41 Ethyl Alcohol 52 mg/dL (Less than 10) H 03/26/19 06:41 Consult Discharge Plan - Plan Referrals: Amira Langford CNP [Primary Care Provider] -
[2019-03-27] MEDS: Topiramate 100 MG TABLET PO SCH ×2 (08:05→21:11)
[2019-03-27 10:52] LABS: Hematocrit 30.6 % (35.3-44.9); Hemoglobin 10.2 g/dL (11.5-15.4); Mean Corpuscular HGB Conc 33.3 g/dL (31.6-35.5); Mean Corpuscular Hemoglobin 32.6 pg (28.0-33.3); Mean Corpuscular Volume 97.8 fL (83.0-100.0); Mean Platelet Volume 9.9 fL (9.4-12.4); Platelet Count 229 K/mcL (140-400); Red Blood Count 3.13 M/mcL (3.82-4.97); Red Cell Distribution Width 13.9 % (11.5-14.5); White Blood Count 6.8 K/mcL (4.3-11.1)
[2019-03-27 11:08] LABS: BUN/Creatinine Ratio 12 (6-26); Blood Urea Nitrogen 10 mg/dL (6-20); Calcium 8.7 mg/dL (8.6-10.3); Carbon Dioxide 22 mEq/L (23-29); Chloride 104 mEq/L (98-107); Glucose 141 mg/dL (70-105); Osmolality,Calculated 283 (280-300); Potassium 3.7 mEq/L (3.5-5.1); Sodium 136 mEq/L (136-145); eGFR For African Americans > 60 (> 60); eGFR For Non-African Americans > 60 (> 60)
[2019-03-27] MEDS ORDERED: Ketorolac 30 MG/ML VIAL IVP ONE (11:14)
--- NOTE | 2019-03-27 12:00 | Internal Med Progress Note ---
Hospitalist Progress Note - Encounter Date of Encounter: 03/27/19 Time of Encounter: 10:15 - Subjective Interval History: H&P reviewed. Underwent ORIF for displaced periprosthetic R femur fracture yesterday uneventfully. Complaining of pain over R LE at the incision site that is poorly controlled. Otherwise, no fever/chills, nausea/vomiting, cough, or abdominal pain. - Exam Vitals: Temp Pulse Resp BP Pulse Ox 97.7 F 105 18 114/81 98 03/27/19 11:18 03/27/19 11:18 03/27/19 11:18 03/27/19 11:18 03/27/19 11:18 Exam: General: Alert and oriented, mild distress due to pain Cardiovascular:Normal S1 & S2, No JVD. Pulse regular. Lungs: clear to auscultation, no wheezes/rales Abdomen:Soft, non-tender, no rigidity. Extremities: R LE dressing c/d/i, neurovascularly intact distally Neurological:Normal cognition and motor skills. Non-focal - Assessment and Plan (1) Status post total right knee replacement Current Visit: No Status: Chronic Assessment and Plan: now complicated by periprosthetic fracture, s/p ORIF POD #1 post-op mx per ortho (2) Displaced fracture of right femur Current Visit: Yes Status: Acute Assessment and Plan: s/p ORIF, POD #1 Post op mx per ortho appears that she has had multiple fractures since childhood, may benefit from outpatient endocrinology follow up (3) Alcohol intoxication Current Visit: Yes Status: Acute Assessment and Plan: leading to an episode of fall complicated by fractures above (4) CRPS (complex regional pain syndrome) Current Visit: Yes Status: Acute Assessment and Plan: resume home meds (5) DVT prophylaxis Current Visit: Yes Status: Acute Assessment and Plan: SQ heparin - Time Spent with Patient Total time spent is greater than 50% in coordination of care (as documented) at patient's floor/unit and/or counseling patient: 25 - 35 minutes Plan of Care Discussed with: patient Internal Medicine: Result - Labs CBC & Chem 7: 03/27/19 10:35 03/27/19 10:35 Labs: Short CBC 03/26/19 03/27/19 Range/Units 19:01 10:35 WBC 6.8 (4.3-11.1) K/mcL Hgb 11.4 L D 10.2 L (11.5-15.4) g/dL Hct 34.8 L 30.6 L (35.3-44.9) % Plt Count 229 (140-400) K/mcL BMP 03/27/19 10:35 Sodium 136 Potassium 3.7 Chloride 104 Carbon Dioxide 22 L BUN 10 Creatinine 0.86 Glucose 141 H Calcium 8.7 - Impressions Impressions Fluoroscopy 03/26/19 17:00 IMPRESSION: Intraoperative fluoroscopic images. Please refer to the operative report for detailed assessment. D/ / Yong Nichols / Yong Nichols Interpreting Provider: Yong Nichols Knee X-Ray 03/26/19 17:00 IMPRESSION: Patient is now status post ORIF of the distal femoral periprosthetic fracture. 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
[2019-03-27] MEDS ORDERED: NON-FORMULARY MEDICATION 1 EACH EACH (Rizatriptan Benzoate [Maxalt] 10 MG) PO PRN (12:04)
[2019-03-27] MEDS ORDERED: Acetaminophen IV 1,000 MG/100 ML INFUS..BTL IVPB PRN (12:31)
[2019-03-27] MEDS ORDERED: SUMAtriptan succinate 25 MG TABLET PO PRN (12:44)
--- NOTE | 2019-03-27 16:18 | Event Note ---
Date of Encounter: 03/27/19 Time of Encounter: 13:15 POD#1 s/p Right femur open reduction internal fixation [Displaced comminuted angulated right distal third periprosthetic femur fx] 03/26/19 Patient seen at bedside. A&Ox3 Dressing and incision c/d/i No calf tenderness, erythema, or warmth. Neurovascularly intact b/l LE. Labwork, vitals, and medications reviewed. Pain control: Adequate Participating in therapy. All questions and concerns addressed. Educated on use of incentive spirometer, ambulation, and hydration. Patient educated on post-operative restrictions and care. Addressed: NONWEIGHTBEARING BRACE AT ALL TIMES WITH WHEELS TO EITHER SIDE OF KNEE. NO KNEE MOTION REMOVE BRACE FOR HYGIENE PURPOSES ONLY BONE STIMULATOR AT THE SAME TIME EACH DAY FOR 3 HOURS DAILY Patient course and disposition discussed with Dr. Willson D/C plan: [facility] - awaiting acceptance
[2019-03-28] MEDS: *HR* Heparin 5,000 UNIT/ML VIAL SQ SCH ×3 (06:03→20:25)
[2019-03-28] MEDS ORDERED: Ibuprofen 800 MG TABLET PO ONE (06:21)
[2019-03-28 08:07] LABS: Hematocrit 29.9 % (35.3-44.9); Hemoglobin 9.8 g/dL (11.5-15.4)
[2019-03-28] MEDS: *HR* OxyCODONE Immed Rel 5 MG TABLET PO PRN ×2 (09:16→19:03)
[2019-03-28] MEDS: Celecoxib 100 MG CAPSULE PO SCH (09:16)
[2019-03-28] MEDS: Topiramate 100 MG TABLET PO SCH ×2 (09:16→20:24)
[2019-03-28] MEDS: [UNRECOGNIZED DRUG - REMARK] PO SCH (10:12)
--- NOTE | 2019-03-28 16:18 | Internal Med Progress Note ---
Hospitalist Progress Note - Encounter Date of Encounter: 03/28/19 Time of Encounter: 10:30 - Subjective Interval History: Seen at bedside. Comapling of the slight fever and chills overnight. Pain is well controlled. Mentions that se has not moved her bowels for last 3-4 dasy. No overnigh events. - Exam Vitals: Temp Pulse Resp BP Pulse Ox 98.6 F 98 18 127/77 97 03/28/19 15:24 03/28/19 15:24 03/28/19 15:24 03/28/19 15:24 03/28/19 15:24 Exam: General: Alert and oriented, no physical distress, able to follow commands. HEENT: No thyromegaly, no lymphadenopathy, no discharge. Eyes: No discharge. Respiratory: Normal vesicular breathing, no added sounds, breathing equal in both sides. CVS: Normal heart sounds, no murmurs, no edema. Extremities: RLE dressings, neurovascularly intact. Gastrointestinal: Soft, nontender abdomen, normal abdominal sounds. No distention noted. Neurological: Alert and oriented. No focal deficits. Cranial nerves II-XII intact. - Assessment and Plan (1) Status post total right knee replacement Current Visit: No Status: Chronic Assessment and Plan: Was complicated by periprosthetic fracture following a fall, status post open reduction internal fixation on 03/26/2019. Pain well controlled. -Had mild fever but does not have any s/s concernig for the infection Orhto on Board. Appreciate the recommedations. (2) Displaced fracture of right femur Current Visit: Yes Status: Acute Assessment and Plan: -Mangement plan outlined above -Ortho on board (3) DVT prophylaxis Current Visit: Yes Status: Acute Assessment and Plan: SQ heparin (4) Alcohol intoxication Current Visit: Yes Status: Acute Assessment and Plan: -Lead to the fall -HAd elevated temp of 100 overnight whch could be relted to the alcohol withdrawl but no other s/s , no tremors, agitation , -WIll cont to obsserve for now; (5) CRPS (complex regional pain syndrome) Current Visit: Yes Status: Acute Assessment and Plan: -Resume home meds (6) Constipation Current Visit: Yes Status: Acute Assessment and Plan: -Likely 2/2 narcotics -Currnetly on senna and colace but not taking senna -COntinue the current meds and order miralax today - Time Spent with Patient Total time spent is greater than 50% in coordination of care (as documented) at patient's floor/unit and/or counseling patient: Internal Medicine: Result - Labs CBC & Chem 7: 03/28/19 07:59 03/27/19 10:35 Labs: Short CBC 03/28/19 Range/Units 07:59 Hgb 9.8 L (11.5-15.4) g/dL Hct 29.9 L (35.3-44.9) % Consult Discharge Plan - Plan Referrals: Amiar Langford CNP [Primary Care Provider] - (4) Alcohol intoxication Qualifiers: Complication of substance-induced condition: uncomplicated Qualified Code(s): F10.920 - Alcohol use, unspecified with intoxication, uncomplicated (5) CRPS (complex regional pain syndrome) Qualifiers: Complex regional pain syndrome type: type II (causalgia) Complex regional pain syndrome affected site: lower extremity Laterality: right Qualified Code(s): 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
[2019-03-28] MEDS: Gabapentin 300 MG CAPSULE PO SCH (20:25)
--- NOTE | 2019-03-28 22:00 | Event Note ---
Date of Encounter: 03/28/19 Time of Encounter: 09:45 POD#2 s/p Right femur open reduction internal fixation [Displaced comminuted angulated right distal third periprosthetic femur fx] 03/26/19 Patient seen at bedside. A&Ox3 Flushed facies Dressing and incision c/d/i No calf tenderness, erythema, or warmth. TROM brace in place - unstrapped Neurovascularly intact b/l LE. Labwork, vitals, and medications reviewed. Pain control: Adequate Participating in therapy. All questions and concerns addressed. Educated on use of incentive spirometer, ambulation, and hydration. Patient educated on post-operative restrictions and care. Addressed: NONWEIGHTBEARING BRACE AT ALL TIMES WITH WHEELS TO EITHER SIDE OF KNEE. NO KNEE MOTION REMOVE BRACE FOR HYGIENE PURPOSES ONLY BONE STIMULATOR AT THE SAME TIME EACH DAY FOR 3 HOURS DAILY Patient course and disposition discussed with Dr. Willson D/C plan: ECF - awaiting acceptance/auth Patient's restrictions discussed with Dr. Haas
[2019-03-29] MEDS: *HR* OxyCODONE Immed Rel 5 MG TABLET PO PRN ×4 (01:22→22:21)
[2019-03-29 02:38] LABS: Basophils % 0.6 %; Eosinophils # 0.3 K/mcL (0.0-0.6); Eosinophils % 4.8 %; Hematocrit 27.2 % (35.3-44.9); Hemoglobin 8.9 g/dL (11.5-15.4); Immature Granulocytes % 0.5 % (0-4); Lymphocytes # 1.7 K/mcL (0.6-4.6); Lymphocytes % 25.2 %; Mean Corpuscular HGB Conc 32.7 g/dL (31.6-35.5); Mean Corpuscular Hemoglobin 32.2 pg (28.0-33.3); Mean Corpuscular Volume 98.6 fL (83.0-100.0); Mean Platelet Volume 10.7 fL (9.4-12.4); Monocytes # 0.5 K/mcL (0.0-1.3); Monocytes % 6.9 %; Neutrophils # 4.1 K/mcL (1.6-8.9); Platelet Count 248 K/mcL (140-400); Red Blood Count 2.76 M/mcL (3.82-4.97); Red Cell Distribution Width 13.8 % (11.5-14.5); White Blood Count 6.6 K/mcL (4.3-11.1)
[2019-03-29] MEDS: *HR* Heparin 5,000 UNIT/ML VIAL SQ SCH ×3 (05:53→21:00)
[2019-03-29] MEDS: Topiramate 100 MG TABLET PO SCH ×2 (08:37→21:01)
[2019-03-29] MEDS: Celecoxib 100 MG CAPSULE PO SCH (08:37)
[2019-03-29] MEDS: [UNRECOGNIZED DRUG - REMARK] PO SCH (08:39)
--- NOTE | 2019-03-29 14:54 | Internal Med Progress Note ---
Hospitalist Progress Note - Encounter Date of Encounter: 03/29/19 Time of Encounter: 10:00 - Subjective Interval History: Seen at bedside. Denies any fever, chills, endorses pain at the surgical site which is well controlled. No overnigth event.s - Exam Vitals: Temp Pulse Resp BP Pulse Ox 98.6 F 89 16 105/70 99 03/29/19 13:59 03/29/19 13:59 03/29/19 13:59 03/29/19 13:59 03/29/19 13:59 Exam: General: Alert and oriented, no physical distress, able to follow commands. HEENT: No thyromegaly, no lymphadenopathy, no discharge. Eyes: No discharge. Respiratory: Normal vesicular breathing, no added sounds, breathing equal in both sides. CVS: Normal heart sounds, no murmurs, no edema. Extremities: RLE dressings, neurovascularly intact. Gastrointestinal: Soft, nontender abdomen, normal abdominal sounds. No distention noted. Neurological: Alert and oriented. No focal deficits. Cranial nerves II-XII intact. - Assessment and Plan (1) Status post total right knee replacement Current Visit: No Status: Chronic Assessment and Plan: Was complicated by periprosthetic fracture following a fall, status post open reduction internal fixation on 03/26/2019. Pain well controlled. -Had mild fever but does not have any s/s concernig for the infection Orhto on Board. Appreciate the recommedations. (2) Displaced fracture of right femur Current Visit: Yes Status: Acute Assessment and Plan: -Mangement plan outlined above -Ortho on board (3) DVT prophylaxis Current Visit: Yes Status: Acute Assessment and Plan: SQ heparin (4) Alcohol intoxication Current Visit: Yes Status: Acute Assessment and Plan: -Lead to the fall -HAd elevated temp of 100 overnight whch could be relted to the alcohol withdrawl but no other s/s , no tremors, agitation , -WIll cont to obsserve for now; (5) CRPS (complex regional pain syndrome) Current Visit: Yes Status: Acute Assessment and Plan: -Resume home meds (6) Constipation Current Visit: Yes Status: Acute Assessment and Plan: -Likely 2/2 narcotics -Currnetly on senna and colace but not taking senna -Continue the current managemnt (7) Drop in hemoglobin Current Visit: Yes Status: Acute Assessment and Plan: -Hgb at the time of admission was 11.4, dropped to 8.9 today. -Etiolgoy unclear -Could be related ti surgey vs dilutunal . -No signs of bleeding -No active bleeeidng currently -Leg surgical site without any s/s concernig for the hematoma -WIll repeat CBC tomorrow - Time Spent with Patient Total time spent is greater than 50% in coordination of care (as documented) at patient's floor/unit and/or counseling patient: Internal Medicine: Result - Labs CBC & Chem 7: 03/29/19 01:27 03/27/19 10:35 Labs: Short CBC 03/29/19 Range/Units 01:27 WBC 6.6 (4.3-11.1) K/mcL Hgb 8.9 L (11.5-15.4) g/dL Hct 27.2 L (35.3-44.9) % Plt Count 248 (140-400) K/mcL Neutrophils # 4.1 (1.6-8.9) K/mcL Consult Discharge Plan - Plan Referrals: Amira Langford BOLT LOADER [Primary Care Provider] - (4) Alcohol intoxication Qualifiers: Complication of substance-induced condition: uncomplicated Qualified Code(s): F10.920 - Alcohol use, unspecified with intoxication, uncomplicated (5) CRPS (complex regional pain syndrome) Qualifiers: Complex regional pain syndrome type: type II (causalgia) Complex regional pain syndrome affected site: lower extremity Laterality: right Qualified Code(s): 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
[2019-03-29] MEDS: Gabapentin 300 MG CAPSULE PO SCH (21:01)
[2019-03-30 04:50] LABS: Basophils % 0.5 %; Eosinophils # 0.4 K/mcL (0.0-0.6); Eosinophils % 6.4 %; Hematocrit 25.4 % (35.3-44.9); Hemoglobin 8.4 g/dL (11.5-15.4); Immature Granulocytes % 0.7 % (0-4); Lymphocytes # 1.6 K/mcL (0.6-4.6); Lymphocytes % 27.9 %; Mean Corpuscular HGB Conc 33.1 g/dL (31.6-35.5); Mean Corpuscular Hemoglobin 32.7 pg (28.0-33.3); Mean Corpuscular Volume 98.8 fL (83.0-100.0); Mean Platelet Volume 10.4 fL (9.4-12.4); Monocytes # 0.4 K/mcL (0.0-1.3); Monocytes % 7.5 %; Neutrophils # 3.3 K/mcL (1.6-8.9); Nucleated Red Blood Cells 0.3 /100 WBC (0); Platelet Count 267 K/mcL (140-400); Red Blood Count 2.57 M/mcL (3.82-4.97); Red Cell Distribution Width 13.4 % (11.5-14.5); White Blood Count 5.8 K/mcL (4.3-11.1)
[2019-03-30 05:07] LABS: BUN/Creatinine Ratio 11 (6-26); Blood Urea Nitrogen 9 mg/dL (6-20); Calcium 8.7 mg/dL (8.6-10.3); Carbon Dioxide 24 mEq/L (23-29); Chloride 104 mEq/L (98-107); Glucose 143 mg/dL (70-105); Osmolality,Calculated 281 (280-300); Potassium 3.3 mEq/L (3.5-5.1); Sodium 135 mEq/L (136-145); eGFR For African Americans > 60 (> 60); eGFR For Non-African Americans > 60 (> 60)
[2019-03-30] MEDS: *HR* Heparin 5,000 UNIT/ML VIAL SQ SCH ×3 (05:12→20:46)
[2019-03-30] MEDS: *HR* OxyCODONE Immed Rel 5 MG TABLET PO PRN ×3 (05:12→20:55)
[2019-03-30] MEDS: Celecoxib 100 MG CAPSULE PO SCH (08:38)
[2019-03-30] MEDS: Topiramate 100 MG TABLET PO SCH ×2 (08:39→20:47)
[2019-03-30] MEDS: [UNRECOGNIZED DRUG - REMARK] PO SCH (08:40)
--- NOTE | 2019-03-30 13:40 | Internal Med Progress Note ---
Hospitalist Progress Note - Encounter Date of Encounter: 03/30/19 Time of Encounter: 09:00 - Subjective Interval History: Seen at bedside.Was sitiitng on chair, no acute complaints today, no overnight events. - Exam Vitals: Temp Pulse Resp BP Pulse Ox 98.4 F 92 18 116/77 97 03/30/19 11:42 03/30/19 11:42 03/30/19 11:42 03/30/19 11:42 03/30/19 11:42 Exam: General: Alert and oriented, no physical distress, able to follow commands. Respiratory: Normal vesicular breathing, no added sounds, breathing equal in both sides. CVS: Normal heart sounds, no murmurs, no edema. Extremities: RLE dressings, neurovascularly intact. Gastrointestinal: Soft, nontender abdomen, normal abdominal sounds. No distention noted. Neurological: Alert and oriented. - Assessment and Plan (1) Status post total right knee replacement Current Visit: No Status: Chronic Assessment and Plan: Was complicated by periprosthetic fracture following a fall, status post open reduction internal fixation on 03/26/2019. Pain well controlled. -Had mild fever but does not have any s/s concernig for the infection Orhto on Board. Appreciate the recommedations. (2) Displaced fracture of right femur Current Visit: Yes Status: Acute Assessment and Plan: -Mangement plan outlined above -Ortho on board (3) DVT prophylaxis Current Visit: Yes Status: Acute Assessment and Plan: SQ heparin (4) Alcohol intoxication Current Visit: Yes Status: Acute Assessment and Plan: -Lead to the fall -No acute interventions needed. (5) CRPS (complex regional pain syndrome) Current Visit: Yes Status: Acute Assessment and Plan: -Resume home meds (6) Drop in hemoglobin Current Visit: Yes Status: Acute Assessment and Plan: -Hgb at the time of admission was 11.4, dropped to 8.4 over days -Etiolgoy unclear -Could be related ti surgey vs dilutunal . -No signs of bleeding -Pt is asymtomatic -Leg surgical site without any s/s concernig for the hematoma -WIll repeat CBC tomorrow - Time Spent with Patient Total time spent is greater than 50% in coordination of care (as documented) at patient's floor/unit and/or counseling patient: Internal Medicine: Result - Labs CBC & Chem 7: 03/30/19 04:10 03/30/19 04:10 Labs: Short CBC 03/30/19 Range/Units 04:10 WBC 5.8 (4.3-11.1) K/mcL Hgb 8.4 L (11.5-15.4) g/dL Hct 25.4 L (35.3-44.9) % Plt Count 267 (140-400) K/mcL Neutrophils # 3.3 (1.6-8.9) K/mcL BMP 03/30/19 04:10 Sodium 135 L Potassium 3.3 L Chloride 104 Carbon Dioxide 24 BUN 9 Creatinine 0.81 Glucose 143 H Calcium 8.7 Consult Discharge Plan - Plan Referrals: Amira Langford CNP [Primary Care Provider] - (4) Alcohol intoxication Qualifiers: Complication of substance-induced condition: uncomplicated Qualified Code(s): F10.920 - Alcohol use, unspecified with intoxication, uncomplicated (5) CRPS (complex regional pain syndrome) Qualifiers: Complex regional pain syndrome type: type II (causalgia) Complex regional pain syndrome affected site: lower extremity Laterality: right Qualified Code(s): 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
[2019-03-30] MEDS ORDERED: Bisacodyl 10 MG RECTAL SUPPOSITORY RC PRN (14:30)
[2019-03-30] MEDS: Gabapentin 300 MG CAPSULE PO SCH (20:48)
[2019-03-31 05:37] LABS: Basophils % 0.7 %; Eosinophils # 0.3 K/mcL (0.0-0.6); Eosinophils % 5.4 %; Hematocrit 24.3 % (35.3-44.9); Hemoglobin 8.2 g/dL (11.5-15.4); Immature Granulocytes % 0.7 % (0-4); Lymphocytes # 1.2 K/mcL (0.6-4.6); Lymphocytes % 19.8 %; Mean Corpuscular HGB Conc 33.7 g/dL (31.6-35.5); Mean Corpuscular Hemoglobin 32.5 pg (28.0-33.3); Mean Corpuscular Volume 96.4 fL (83.0-100.0); Mean Platelet Volume 9.6 fL (9.4-12.4); Monocytes # 0.5 K/mcL (0.0-1.3); Monocytes % 9.2 %; Neutrophils # 3.8 K/mcL (1.6-8.9); Nucleated Red Blood Cells 0.5 /100 WBC (0); Platelet Count 266 K/mcL (140-400); Red Blood Count 2.52 M/mcL (3.82-4.97); Red Cell Distribution Width 13.5 % (11.5-14.5); Segmented Neutrophils % 64.2 %; White Blood Count 5.9 K/mcL (4.3-11.1)
[2019-03-31 05:56] LABS: BUN/Creatinine Ratio 13 (6-26); Blood Urea Nitrogen 10 mg/dL (6-20); Carbon Dioxide 22 mEq/L (23-29); Chloride 105 mEq/L (98-107); Glucose 131 mg/dL (70-105); Osmolality,Calculated 283 (280-300); Potassium 3.8 mEq/L (3.5-5.1); Sodium 136 mEq/L (136-145); eGFR For African Americans > 60 (> 60); eGFR For Non-African Americans > 60 (> 60)
[2019-03-31] MEDS: *HR* OxyCODONE Immed Rel 5 MG TABLET PO PRN ×3 (06:12→22:01)
[2019-03-31] MEDS: *HR* Heparin 5,000 UNIT/ML VIAL SQ SCH ×3 (06:16→22:02)
--- NOTE | 2019-03-31 06:34 | Orthopedics Progress Note ---
Date of Encounter: 03/31/19 Time of Encounter: 06:34 Subjective Interval history: Patient was seen this morning doing well without complaints. Afebrile vital signs stable. Operative extremity: Neurovascularly intact Dressing clean dry and intact Calves nontender Assessment and plan: Continue with postoperative care hb 8.2 plan for discharge tomorrow Objective Vital signs: Vital Signs Temp Pulse Resp BP Pulse Ox 03/31/19 02:20 99.3 F 93 18 144/95 98 03/30/19 22:52 99.1 F 98 18 143/90 97 03/30/19 19:01 97.5 F L 88 18 136/95 99 03/30/19 15:35 98.6 F 86 18 126/84 94 03/30/19 11:42 98.4 F 92 18 116/77 97 Intake and Output 03/30/19 03/30/19 03/31/19 15:59 23:59 07:59 Intake Total 600 / 3220 1820 / 3220 1640 / 1640 Output Total 900 / 900 0 / 900 0 / 0 Balance -300 / 2320 1820 / 2320 1640 / 1640 Intake: Oral 600 / 3220 1820 / 3220 1640 / 1640 Output: Urine 900 / 900 0 / 900 0 / 0 Other: Meal Lunch Dinner Percent of Meal Consumed 100% 80% # Voids 2 1 1 # Urine Diapers 1 Weight 100.72 kg Patient Weight 03/31/19 23:59 Weight 100.72 kg - Labs CBC & BMP: 03/31/19 05:25 03/31/19 05:25 Labs: Abnormal lab results RBC 2.52 M/mcL (3.82-4.97) L 03/31/19 05:25 Hgb 8.2 g/dL (11.5-15.4) L 03/31/19 05:25 Hct 24.3 % (35.3-44.9) L 03/31/19 05:25 Nucleated RBCs/100 WBC 0.5 /100 WBC (0) H 03/31/19 05:25 Sodium 135 mEq/L (136-145) L 03/30/19 04:10 Potassium 3.3 mEq/L (3.5-5.1) L 03/30/19 04:10 Carbon Dioxide 22 mEq/L (23-29) L 03/31/19 05:25 Glucose 131 mg/dL (70-105) H 03/31/19 05:25 POC Glucose 107 mg/dL (70-99) H 03/26/19 12:20 Calcium 8.5 mg/dL (8.6-10.3) L 03/26/19 06:41 Globulin 2.1 g/dL (2.4-3.5) L 03/26/19 06:41 Ethyl Alcohol 52 mg/dL (Less than 10) H 03/26/19 06:41 Consult Discharge Plan - Plan Referrals: Amira Langford, MERCHANDISING REPRESENTATIVE [Primary Care Provider] -
[2019-03-31] MEDS: Topiramate 100 MG TABLET PO SCH ×2 (07:42→21:59)
[2019-03-31] MEDS: Celecoxib 100 MG CAPSULE PO SCH (07:42)
--- NOTE | 2019-03-31 11:52 | Event Note ---
Date of Encounter: 03/30/19 Time of Encounter: 12:30 POD#4 s/p Right femur open reduction internal fixation [Displaced comminuted angulated right distal third periprosthetic femur fx] 03/26/19 Patient seen at bedside. A&Ox3 Flushed facies Skin became irritated from Honeycomb dressing. This was removed by staff and Gauze and Jevon applied to incision. zipline and anabella intact. No calf tenderness, erythema, or warmth. TROM brace in place - unstrapped Neurovascularly intact b/l LE. Labwork, vitals, and medications reviewed. Pain control: Adequate Participating in therapy. All questions and concerns addressed. Educated on use of incentive spirometer, ambulation, and hydration. Patient educated on post-operative restrictions and care. Addressed: NONWEIGHTBEARING BRACE AT ALL TIMES WITH WHEELS TO EITHER SIDE OF KNEE. NO KNEE MOTION REMOVE BRACE FOR HYGIENE PURPOSES ONLY BONE STIMULATOR AT THE SAME TIME EACH DAY FOR 3 HOURS DAILY JEVON wrap and sterile gauze to incision at all times. Change daily or more frequently if gets wet or soiled. Incision should be cleansed with soap and sergio er and gently patted dry should this occur. Please notify [facility] with any concerns or questions regarding incision or brace care or restrictions. Patient course and disposition discussed with Dr. Willson D/C plan: ECF - accepted/auth'd for Sunday 04/01 per Patient's restrictions discussed with Dr. Haas
--- NOTE | 2019-03-31 11:56 | Physician Discharge Referral ---
ExtendedCare Referral Info Transfer To: [facility] - Diagnosis (1) Displaced fracture of right femur Priority: Primary Status: Acute (2) Acute blood loss anemia Priority: Secondary Status: Acute (3) Alcohol intoxication Priority: Secondary Status: Acute (4) CRPS (complex regional pain syndrome) Priority: Secondary Status: Chronic (5) Constipation Priority: Secondary Status: Chronic (6) Obesity Priority: Secondary Status: Chronic (7) Status post total right knee replacement Priority: Secondary Status: Chronic Expected Duration of Placement: less than 30 days Prognosis: Fair Aware of Diagnosis: Patient Aware of Prognosis: Patient - Transfer Medications Prescriptions: Enoxaparin [Lovenox] 30 mg SQ DAILY 7 Days #7 syr OxyCODONE Immed Rel [Roxicodone 10 MG] 10 mg PO Q6H 7 Days #28 tab Home Medications: Montelukast [Singulair] 10 mg PO HS 01/16/18 [History] Triamcinolone Acetonide [Nasacort] 2 spr NS DAILY 01/16/18 [History] Levocetirizine Dihydrochloride [Allergy Relief (Xyzal)] 5 mg PO DAILY 09/07/18 [History] Rizatriptan Benzoate [Maxalt] 10 mg PO BID PRN 09/07/18 [History] Cyclobenzaprine [Flexeril] 20 mg PO HS 11/30/18 [History] Topiramate [Topamax] 150 mg PO BID 11/30/18 [History] Celecoxib [Celebrex] 100 mg PO DAILY 03/26/19 [History] DULoxetine [Cymbalta] 90 mg PO DAILY 03/27/19 [History] Gabapentin [Neurontin] 300 mg PO HS 03/27/19 [History] Docusate [Colace] 100 mg PO BID capsule 04/01/19 [Rx] Enoxaparin [Lovenox] 30 mg SQ DAILY 7 Days #7 syr 04/01/19 [Rx] OxyCODONE Immed Rel [Roxicodone 10 MG] 10 mg PO Q6H 7 Days #28 tab 04/01/19 [Rx] Allergies/Adverse Reactions: Allergy/AdvReac Type Severity Reaction Status Date / Time clindamycin Allergy Hives Verified 03/27/19 17:20 codeine Allergy Itching Verified 03/27/19 17:20 Erythromycin Base Allergy Hives Verified 03/27/19 17:20 penicillin G Allergy See Verified 03/27/19 17:20 Comments Sulfa (Sulfonamide Allergy Itching Verified 09/07/18 07:29 Antibiotics) tetanus toxoid, adsorbed Allergy See Verified 03/27/19 17:20 Comments vancomycin Allergy Rash Verified 03/27/19 17:20 cough syrup Allergy Itching Uncoded 03/27/19 17:20 tape Allergy Blister Uncoded 03/27/19 17:20 - Respiratory Orders Smoking Cessation: Smoking cessation has been advised. For more information, call the [place] Tobacco Quit Line at 4-303-JXBM-NOW. - Ancillary Orders May use pressure relief devices daily prn, May go on TALIB w/family/respon constitution party w/meds at nurse discretion PRN, May consult with Dentist, Almond Huller, Marine Tower Operator PRN - Mobility Orders Chair, Ambulate (NONWEIGHTBEARING TO THE RIGHT LOWER EXTREMITY; AMBULATE WITH CRUTCHES; NO KNEE MOTION; WEAR BRACE AT ALL TIMES WITH WHEELS TO EITHER SIDE OF KNEE) - Rehabiliation Orders Rehab Potential: Good Rehab Orders: Evaluation for Physical Therapy, Evaluation for Occupational Therapy Other: NONWEIGHTBEARING TO THE RIGHT LOWER EXTREMITY; AMBULATE WITH CRUTCHES; NO KNEE MOTION; WEAR BRACE AT ALL TIMES WITH WHEELS TO EITHER SIDE OF KNEE BRACE AT ALL TIMES WITH WHEELS TO EITHER SIDE OF KNEE. NO KNEE MOTION REMOVE BRACE FOR HYGIENE PURPOSES ONLY BONE STIMULATOR AT THE SAME TIME EACH DAY FOR 3 HOURS DAILY JEOVANY wrap and sterile gauze to incision at all times. Change daily or more frequently if gets wet or soiled. Incision should be cleansed with soap and water and gently patted dry should this occur. Please notify [facility] with any concerns or questions regarding incision or brace care or restrictions. - Treatments Skin tear care topically daily PRN per policy - Diet Orders Regular CERTIFICATION: I certify that the transfer of the above named patient to an Extended Care Facility is necessary for the continuing treatment of the diagnosis listed. The above information is true and accurate reflection of patient's current condition. Confidential - Redisclosure prohibited without a patient's written consent.
[2019-03-31] MEDS: [UNRECOGNIZED DRUG - REMARK] PO SCH (12:09)
--- NOTE | 2019-03-31 12:34 | Internal Med Progress Note ---
Hospitalist Progress Note - Encounter Date of Encounter: 03/31/19 Time of Encounter: 10:00 - Subjective Interval History: Sitting comfortably in chair. Denies nay fever, chills, rigors, is feeling fine. Denies any pain at the surgical site. Had temp of 100.3 overnight. No other overnight events. HAS not passed stools, discussed wiht her if she wants to try the suppositires but she refused. - Exam Vitals: Temp Pulse Resp BP Pulse Ox 98.4 F 88 16 96/65 99 03/31/19 11:28 03/31/19 11:28 03/31/19 11:28 03/31/19 11:28 03/31/19 11:28 Exam: General: Alert and oriented, no physical distress, able to follow commands. Respiratory: Normal vesicular breathing, no added sounds, breathing equal in both sides. CVS: Normal heart sounds, no murmurs, no edema. Extremities: RLE dressings, neurovascularly intact. Gastrointestinal: Soft, nontender abdomen, normal abdominal sounds. No distention noted. Neurological: Alert and oriented. - Assessment and Plan (1) Status post total right knee replacement Current Visit: No Status: Chronic Assessment and Plan: Was complicated by periprosthetic fracture following a fall, status post open reduction internal fixation on 03/26/2019. Pain well controlled. -Had mild fever but does not have any s/s concernig for the infection Orhto on Board. Appreciate the recommedations. (2) Displaced fracture of right femur Current Visit: Yes Status: Acute Assessment and Plan: -Mangement plan outlined above -Ortho on board (3) DVT prophylaxis Current Visit: Yes Status: Acute Assessment and Plan: SQ heparin (4) Alcohol intoxication Current Visit: Yes Status: Acute Assessment and Plan: -Lead to the fall -No acute interventions needed. (5) CRPS (complex regional pain syndrome) Current Visit: Yes Status: Acute Assessment and Plan: -Resume home meds (6) Drop in hemoglobin Current Visit: Yes Status: Acute Assessment and Plan: -Hgb at the time of admission was 11.4, dropped to 8.2 over days -Etiolgoy unclear -Could be related ti surgey -No signs of bleeding -Pt is asymtomatic -Leg surgical site without any s/s concernig for the hematoma -WIll repeat CBC tomorrow - Time Spent with Patient Total time spent is greater than 50% in coordination of care (as documented) at patient's floor/unit and/or counseling patient: Internal Medicine: Result - Labs CBC & Chem 7: 03/31/19 05:25 03/31/19 05:25 Labs: Short CBC 03/31/19 Range/Units 05:25 WBC 5.9 (4.3-11.1) K/mcL Hgb 8.2 L (11.5-15.4) g/dL Hct 24.3 L (35.3-44.9) % Plt Count 266 (140-400) K/mcL Neutrophils # 3.8 (1.6-8.9) K/mcL BMP 03/31/19 05:25 Sodium 136 Potassium 3.8 Chloride 105 Carbon Dioxide 22 L BUN 10 Creatinine 0.79 Glucose 131 H Calcium 9.0 Consult Discharge Plan - Plan Referrals: Amira Langford, THREAT ANALYST [Primary Care Provider] - (4) Alcohol intoxication Qualifiers: Complication of substance-induced condition: uncomplicated Qualified Code(s): F10.920 - Alcohol use, unspecified with intoxication, uncomplicated (5) CRPS (complex regional pain syndrome) Qualifiers: Complex regional pain syndrome type: type II (causalgia) Complex regional pain syndrome affected site: lower extremity Laterality: right Qualified Code(s): 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
[2019-03-31] MEDS: Gabapentin 300 MG CAPSULE PO SCH (22:01)
[2019-04-01 07:07] LABS: Basophils % 0.6 %; Eosinophils # 0.4 K/mcL (0.0-0.6); Eosinophils % 6.8 %; Hematocrit 27.2 % (35.3-44.9); Hemoglobin 8.7 g/dL (11.5-15.4); Immature Granulocytes % 1.3 % (0-4); Lymphocytes # 1.3 K/mcL (0.6-4.6); Lymphocytes % 24.6 %; Mean Corpuscular Hemoglobin 31.8 pg (28.0-33.3); Mean Corpuscular Volume 99.3 fL (83.0-100.0); Mean Platelet Volume 9.6 fL (9.4-12.4); Monocytes # 0.4 K/mcL (0.0-1.3); Monocytes % 7.9 %; Neutrophils # 3.1 K/mcL (1.6-8.9); Nucleated Red Blood Cells 0.8 /100 WBC (0); Platelet Count 321 K/mcL (140-400); Red Blood Count 2.74 M/mcL (3.82-4.97); Red Cell Distribution Width 13.6 % (11.5-14.5); Segmented Neutrophils % 58.8 %; White Blood Count 5.3 K/mcL (4.3-11.1)
--- NOTE | 2019-04-01 07:10 | Orthopedics Progress Note ---
Date of Encounter: 04/01/19 Time of Encounter: 07:09 Subjective Interval history: Patient was seen this morning doing well without complaints. Afebrile vital signs stable. Operative extremity: Neurovascularly intact Dressing clean dry and intact Calves nontender Assessment and plan: Continue with postoperative care Discharged today Objective Vital signs: Vital Signs Temp Pulse Resp BP Pulse Ox 03/31/19 23:41 98.8 F 86 19 119/77 100 03/31/19 19:32 98.9 F 88 19 148/97 98 03/31/19 16:42 98.9 F 92 16 142/96 100 03/31/19 11:28 98.4 F 88 16 96/65 99 Intake and Output 03/31/19 03/31/19 04/01/19 15:59 23:59 07:59 Intake Total 240 / 3010 1130 / 3010 Balance 240 / 3010 1130 / 3010 Intake: Oral 240 / 3010 1130 / 3010 Other: Meal Breakfast Dinner Percent of Meal Consumed 100% 90% # Voids 2 1 1 - Labs CBC & BMP: 03/31/19 05:25 03/31/19 05:25 Labs: Abnormal lab results RBC 2.52 M/mcL (3.82-4.97) L 03/31/19 05:25 Hgb 8.2 g/dL (11.5-15.4) L 03/31/19 05:25 Hct 24.3 % (35.3-44.9) L 03/31/19 05:25 Nucleated RBCs/100 WBC 0.5 /100 WBC (0) H 03/31/19 05:25 Sodium 135 mEq/L (136-145) L 03/30/19 04:10 Potassium 3.3 mEq/L (3.5-5.1) L 03/30/19 04:10 Carbon Dioxide 22 mEq/L (23-29) L 03/31/19 05:25 Glucose 131 mg/dL (70-105) H 03/31/19 05:25 POC Glucose 107 mg/dL (70-99) H 03/26/19 12:20 Calcium 8.5 mg/dL (8.6-10.3) L 03/26/19 06:41 Globulin 2.1 g/dL (2.4-3.5) L 03/26/19 06:41 Ethyl Alcohol 52 mg/dL (Less than 10) H 03/26/19 06:41 Consult Discharge Plan - Plan Referrals: Amira Langford CNP [Primary Care Provider] -
[2019-04-01] MEDS: Celecoxib 100 MG CAPSULE PO SCH (08:01)
[2019-04-01] MEDS: *HR* Heparin 5,000 UNIT/ML VIAL SQ SCH ×2 (08:01→15:51)
[2019-04-01] MEDS: Topiramate 100 MG TABLET PO SCH (08:01)
[2019-04-01] MEDS: *HR* OxyCODONE Immed Rel 5 MG TABLET PO PRN ×2 (08:01→13:40)
[2019-04-01] MEDS: [UNRECOGNIZED DRUG - REMARK] PO SCH (08:12)
--- NOTE | 2019-04-01 10:42 | Discharge Summary ---
- NOTES TO OUTPATIENT PROVIDER Notes to Outpatient Provider: Came with the fracture of the right femur.Is doing okay now. Being dischrged to the SNF. 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 Shelley is a 48 year old female with history of migraines and complex regional pain syndrome presents as a transfer from [facility] ED for a right lower limb fracture.X-ray of right knee showed comminuted and moderately displaced distal right femoral metadiaphyseal fracture. Ortho was consulted, got the surgery with Right femur open reduction internal fixation. Did fine afterwars wxcept for the bloood loss and anemia, Was asymptomatic and hgb is stable now. Is being discharged today. Has lower exteemity swelling, likley dependent edema.X ray of the ankle of the right side did not show any fracture. Pt is being dischrged in stable condition to SNF - Time Spent with Patient Total time spent providing and/or coordinating discharge services: 35 minutes - Discharge Medications Prescriptions: New Docusate [Colace] 100 mg PO BID capsule Enoxaparin [Lovenox] 30 mg SQ DAILY 7 Days #7 syr OxyCODONE Immed Rel [Roxicodone 10 MG] 10 mg PO Q6H 7 Days #28 tab Continued Montelukast [Singulair] 10 mg PO HS Triamcinolone Acetonide [Nasacort] 2 spr NS DAILY Levocetirizine Dihydrochloride [Allergy Relief (Xyzal)] 5 mg PO DAILY Rizatriptan Benzoate [Maxalt] 10 mg PO BID PRN PRN Reason: Migraine Headache Cyclobenzaprine [Flexeril] 20 mg PO HS Topiramate [Topamax] 150 mg PO BID Celecoxib [Celebrex] 100 mg PO DAILY DULoxetine [Cymbalta] 90 mg PO DAILY Gabapentin [Neurontin] 300 mg PO HS Home Medications: Montelukast [Singulair] 10 mg PO HS 01/16/18 [History] Triamcinolone Acetonide [Nasacort] 2 spr NS DAILY 01/16/18 [History] Levocetirizine Dihydrochloride [Allergy Relief (Xyzal)] 5 mg PO DAILY 09/07/18 [History] Rizatriptan Benzoate [Maxalt] 10 mg PO BID PRN 09/07/18 [History] Cyclobenzaprine [Flexeril] 20 mg PO HS 11/30/18 [History] Topiramate [Topamax] 150 mg PO BID 11/30/18 [History] Celecoxib [Celebrex] 100 mg PO DAILY 03/26/19 [History] DULoxetine [Cymbalta] 90 mg PO DAILY 03/27/19 [History] Gabapentin [Neurontin] 300 mg PO HS 03/27/19 [History] Docusate [Colace] 100 mg PO BID capsule 04/01/19 [Rx] Enoxaparin [Lovenox] 30 mg SQ DAILY 7 Days #7 syr 04/01/19 [Rx] OxyCODONE Immed Rel [Roxicodone 10 MG] 10 mg PO Q6H 7 Days #28 tab 04/01/19 [Rx] Allergies/Adverse Reactions: Allergy/AdvReac Type Severity Reaction Status Date / Time clindamycin Allergy Hives Verified 03/27/19 17:20 codeine Allergy Itching Verified 03/27/19 17:20 Erythromycin Base Allergy Hives Verified 03/27/19 17:20 penicillin G Allergy See Verified 03/27/19 17:20 Comments Sulfa (Sulfonamide Allergy Itching Verified 09/07/18 07:29 Antibiotics) tetanus toxoid, adsorbed Allergy See Verified 03/27/19 17:20 Comments vancomycin Allergy Rash Verified 03/27/19 17:20 cough syrup Allergy Itching Uncoded 03/27/19 17:20 tape Allergy Blister Uncoded 03/27/19 17:20 Date of admission: 03/26/19 09:49 Primary care physician: Amira Langford CNP Consults: 03/26/19 19:57 Consult to Occupational Therapy [CONS] Routine Comment: Evaluate, develop and implement POC Reason for Consult: postop Does patient have active BEDREST order?: No Is patient medically & hemodynamically stable?: Yes Patient assessed for mobility or mobilized this visit?: Yes Consult to Orthopedic Navigator [CONS] [CONS] Routine Consult to Physical Therapy [CONS] Routine Comment: Evaluate, develop and implement POC Reason for Consult: dc planning Does patient have active BEDREST order?: No Is patient medically & hemodynamically stable?: Yes Patient assessed for mobility or mobilized this visit?: Yes Consult to Planner [CONS] Routine Reason for SW Consult: discharge planning RT Post Op Consult [CONS] Routine - Constitutional Vitals: Temp Pulse Resp BP Pulse Ox 98.6 F 94 16 115/75 96 04/01/19 07:22 04/01/19 07:22 04/01/19 07:22 04/01/19 07:22 04/01/19 07:22 General appearance: Present: A&O X 3, answers questions appropriately Exam: General: Alert and oriented, no physical distress, able to follow commands. Respiratory: Normal vesicular breathing, no added sounds, breathing equal in both sides. CVS: Normal heart sounds, no murmurs, no edema. Extremities: RLE dressings, neurovascularly intact. 1+ lower extremity b/l edema, likley dependent. Gastrointestinal: Soft, nontender abdomen, normal abdominal sounds. No distention noted. Neurological: Alert and oriented. - Patient Status Disposition: Transfer SNF Condition: Good Functional capacity at discharge: uses cane/walker Overall status at discharge: patient is progressing back to baseline - Discharge Instructions Follow Up With: Amira Langford CNP [Primary Care Provider] - - Diet and Activity Activity: as per physical therapy Diet: advance to your usual diet
--- NOTE | 2019-04-01 11:55 | Physician Discharge Referral ---
ExtendedCare Referral Info Institutional Level of Care: Skilled - Diagnosis (1) Status post total right knee replacement Priority: Secondary Status: Chronic (2) Displaced fracture of right femur Priority: Primary Status: Acute (3) DVT prophylaxis Priority: Secondary Status: Acute (4) Alcohol intoxication Priority: Secondary Status: Acute (5) CRPS (complex regional pain syndrome) Priority: Secondary Status: Acute (6) Drop in hemoglobin Priority: Secondary Status: Acute - Transfer Medications Prescriptions: Enoxaparin [Lovenox] 30 mg SQ DAILY 7 Days #7 syr OxyCODONE Immed Rel [Roxicodone 10 MG] 10 mg PO Q6H 7 Days #28 tab Home Medications: Montelukast [Singulair] 10 mg PO HS 01/16/18 [History] Triamcinolone Acetonide [Nasacort] 2 spr NS DAILY 01/16/18 [History] Levocetirizine Dihydrochloride [Allergy Relief (Xyzal)] 5 mg PO DAILY 09/07/18 [History] Rizatriptan Benzoate [Maxalt] 10 mg PO BID PRN 09/07/18 [History] Cyclobenzaprine [Flexeril] 20 mg PO HS 11/30/18 [History] Topiramate [Topamax] 150 mg PO BID 11/30/18 [History] Celecoxib [Celebrex] 100 mg PO DAILY 03/26/19 [History] DULoxetine [Cymbalta] 90 mg PO DAILY 03/27/19 [History] Gabapentin [Neurontin] 300 mg PO HS 03/27/19 [History] Docusate [Colace] 100 mg PO BID capsule 04/01/19 [Rx] Enoxaparin [Lovenox] 30 mg SQ DAILY 7 Days #7 syr 04/01/19 [Rx] OxyCODONE Immed Rel [Roxicodone 10 MG] 10 mg PO Q6H 7 Days #28 tab 04/01/19 [Rx] Allergies/Adverse Reactions: Allergy/AdvReac Type Severity Reaction Status Date / Time clindamycin Allergy Hives Verified 03/27/19 17:20 codeine Allergy Itching Verified 03/27/19 17:20 Erythromycin Base Allergy Hives Verified 03/27/19 17:20 penicillin G Allergy See Verified 03/27/19 17:20 Comments Sulfa (Sulfonamide Allergy Itching Verified 09/07/18 07:29 Antibiotics) tetanus toxoid, adsorbed Allergy See Verified 03/27/19 17:20 Comments vancomycin Allergy Rash Verified 03/27/19 17:20 cough syrup Allergy Itching Uncoded 03/27/19 17:20 tape Allergy Blister Uncoded 03/27/19 17:20 - Respiratory Orders Smoking Cessation: Smoking cessation has been advised. For more information, call the [place] Tobacco Quit Line at 0-156-BUKK-NOW. CERTIFICATION: I certify that the transfer of the above named patient to an Extended Care Facility is necessary for the continuing treatment of the diagnosis listed. The above information is true and accurate reflection of patient's current condition. Confidential - Redisclosure prohibited without a patient's written consent.
[2019-04-01 16:04] VITALS: BP 125/85
== END 2019-04-01 18:00 | DRG 481 ==
LOC: 3NENU → SUATTDRO 09:49
PROVIDERS: ADMIT Internal Medicine Nephrology; ATTEND Internal Medicine